=== PATIENT | male | born 1960 | race Caucasian/White ===

== ENCOUNTER 2021-01-18 00:21 | Inpatient (IN) | payer MEDICARE, MEDICAID, SELFPAY ==
[2021-01-18] VITALS (25 sets, daily range): BP systolic 116–181; BP diastolic 64–115; PULSE 56–90; RESP 18–24; TEMP 36.6–36.8; O2SAT 96–100; BMI 26.5
--- NOTE | 2021-01-18 00:21 | XRR_ITS ---
PROCEDURE INFORMATION: Exam: XR Chest Exam date and time: 01/18/2021 12:21 AM Age: 60 years old Clinical indication: Pain; Angina pectoris; Additional info: Chest pain TECHNIQUE: Imaging protocol: XR of the chest. Views: Frontal portable upright view of the chest. COMPARISON: No relevant prior studies available. FINDINGS: Tubes, catheters and devices: EKG leads are present overlying the chest. Lungs: Right mid lung zone calcified pulmonary parenchymal granuloma. The lungs are otherwise clear bilaterally. The pulmonary vasculature is normal. Pleural spaces: No pleural effusion. No pneumothorax. Heart/Mediastinum: The heart is normal in size and contour. Bones/joints: No acute chest wall abnormality identified. XR/XR chest 1V portable [id number] IMPRESSION: No acute cardiopulmonary abnormality identified.
[2021-01-18] MEDS: clopidogrel 300 mg Tablet 600 MG PO (00:32)
[2021-01-18] MEDS: heparin 5,000 unit/mL INJ 1 mL 4000 UNIT IVP (00:34)
--- NOTE | 2021-01-18 00:36 | PM.HP ---
Providers/Chief Complaint Admitting Physician: Cristino Charles MD/ Cardiology Chief Complaint: STEMI History of Present Illness Mariano Townsend is a 60 year old male with past medical history of peripheral artery disease, hypertension, tobacco abuse presented with severe chest pain. According to patient for the last 1 week he has been having on and off chest discomfort. It is substernal radiates to both arms and his arms feel numb. He had an episode last night which was quite severe. It was associated with diaphoresis and nausea. Tonight again he had prolonged chest pain episode for which she called EMS. EKG performed showed ST elevations in inferior leads with posterior wall involvement. Patient has specifically asked for not receiving any blood products secondary to his mandaen beliefs.He is not willing to give any blood for lab testing. Patient was emergently taken to the cardiac Supervisor Drying. Coronary angiogram showed thrombotic occlusion of mid RCA. He underwent successful PCI with CIARRA x1. He also has residual distal left main/left circumflex artery/LAD stenosis. Review of Systems General: Reports: 10 or more systems reviewed and unremarkable except in HPI and below Medications/Allergies Home Medications Medication Instructions Recorded Confirmed Last Taken Type acetaminophen [Tylenol Extra 500 - 1,000 mg PO PRN 01/18/21 01/18/21 Unknown History Strength] [id number]-[id number]-jspsomcf 1 ea INHALATION PRN 01/18/21 01/18/21 01/17/21 History [Trelegy Ellipta] ibuprofen 800 mg PO PRN 01/18/21 01/18/21 Unknown History naproxen sodium [Aleve] 220 mg PO PRN 01/18/21 01/18/21 Unknown History Allergies Allergy/AdvReac Type Severity Reaction Status Date / Time codeine Allergy ADR-Itching Verified 01/18/21 09:15 PFSH Acute PFSH: Medical History Arthritis Hypertension Peripheral artery disease Tobacco abuse Surgical History History of femoropopliteal bypass Family History Other Hypertension Social History Smoking and tobacco status: current every day smoker Vitals/I&O/Wt Last Vital Signs Temp 98.1 F 01/18/21 00:23 Pulse 90 01/18/21 00:23 Resp 18 01/18/21 00:23 BP 181/115 01/18/21 00:23 Pulse Ox 100 01/18/21 00:23 Weight last 48 hrs Weight 185 lb Physical Exam Narrative: EXAM NARRATIVE: GENERAL: Patient is alert, awake and oriented x3. [] NECK: No jugular vein distension. [] HEENT: No cyanosis. No icterus. No pallor. [] HEART: Regular S1 and S2. No murmur, rub or gallop. [] LUNGS: Clear to auscultate bilaterally. [] ABDOMEN: Soft, nontender and nondistended. Positive bowel sounds. No guarding, rebound or tenderness. [] CENTRAL NERVOUS SYSTEM: Grossly nonfocal. [] EXTREMITIES: Lower extremities with 1+ edema bilaterally. Pulses palpable in the lower extremities, both dorsalis pedis and posterior tibial. [] A&P Assessment and plan (1) ST elevation [place] (STEMI): Status: Acute (2) History of femoropopliteal bypass: Status: Acute (3) Arthritis: Status: Acute (4) Hypertension: Status: Acute (5) Peripheral artery disease: Status: Acute (6) Tobacco abuse: Status: Acute PatientPresented with ST elevation [place] and was emergently taken to the cardiac Supervisor Drying where he underwent intervention of his mid RCA with CIARRA x1. He has residual significant disease in the left main artery/LCx and LAD. We will ask for CT surgery evaluation. Because of by lateral severe PAD, percutaneous support device insertion will be challenging. CABG likely the superior option however as he does not receive any blood products secondary to mandaen believes, it may be challenging. We will let CT surgery make the determination of his candidacy for CABG after discussing with him. Aspirin and Plavix for at least 1 year. Order echocardiogram. High intensity statin therapy. Beta-prasanna and lisinopril. Admit to CSU Attestations Medical Necessity Statement*: Care expected to cross 2 midnights. Patient presented with acute ST elevation [place] of RCA. He has severe disease of left main/LCx and LAD. Coding Level of Care Code Acute Vehicle And Equipment Cleaner for Nicol Griggs Diagnoses ST elevation [place] (STEMI) I21.3 History of femoropopliteal bypass Z98.890 Arthritis M19.90 Hypertension I10 Peripheral artery disease I73.9 Tobacco abuse Z72.0
[2021-01-18] MEDS: sodium chloride 0.9% 1,000 ML 999 ML IV (00:37)
--- NOTE | 2021-01-18 00:37 | XACV_ITS ---
Ht: 178 cm Wt: 82 kg BSA: 2.02 m2 Gender: Male : 1960 Exam Priority: Routine Procedure(s): Procedure Description: Diagnostic procedure Procedure Description: PCI procedure Procedure Description: Drug Eluting Coronary Stent Procedure Description: PTCA Procedure Description: Coronary Angiography Diagnostic Cath Status: Emergency Diagnostic Findings * Distal left main artery has severe 60%, hazy lesion. * Circumflex has 80% mid stenosis. * Proximal RCA has moderate 30-40% stenosis. Mid Right Coronary Artery to Distal Right Coronary Artery: total thrombotic occlusion, ELIUD: 1 flow. * Left Main: obstructive 60% stenosis, ELIUD: 3 flow. It appears hazy. * Mid Left Anterior Descending: significant 80% stenosis, ELIUD: 3 flow. * Distal Left Anterior Descending: severe 90% stenosis, ELIUD: 3 flow. * First Obtuse Marginal Branch Segment: severe 90% stenosis, ELIUD: 3 flow. * Coronary angiography shows right dominance. PCI Status: Emergency PCI Indication: Immediate PCI for STEMI Interventional Findings * Procedure details: We engaged RCA with a JR4 guide catheter. IV heparin was administered to maintain an ACT above 250 seconds. A 0.014 run-through guidewire was used to cross the stenosis and was placed in PLV branch. 2.5 x 12 mm semicompliant balloon was used to predilate the stenosis in the mid RCA. This was followed by placement of 3.0 x 15 mm resolute [place] drug-eluting stent. At this time final angiogram was performed that showed excellent stent expansion, ELIUD-3 flow and no residual stenosis. Guidewire and guide catheter were removed. Patient left the Piping Drafter in a stable condition. * Mid Right Coronary Artery to Distal Right Coronary Artery: 99% stenosis treated with a Drug Eluting Stent. 0% residual stenosis, ELIUD: 3 flow. Conclusions 1. Total thrombotic occlusion of the mid to distal RCA which is culprit lesion for the STEMI s/p revascularization with CIARRA X 1. 2. Severe multivessel coronary artery disease involving distal Left main stenosis, severe mid LCx stenosis and severe mid LAD and distal LAD stenosis. 3. Mid Right Coronary Artery to Distal Right Coronary Artery was treated with a Drug Eluting Stent. Recommendations * Transfer to CSU. * Aspirin and Plavix for 1 year. * Patient has severe multivessel CAD. Culprit vessel for STEMI was RCA that was revascularized. We will consult CT surgery for CABG for revascularization of Left main/LAD/LCx. * Order echocardiogram. * Will await CT surgery plan for CABG. Interventional RX Recommendation: PCI w/o planned CABG Diagnostic RX Recommendation: PCI w/o planned CABG Anticoagulation: Heparin Pressures Phase:Rest AO : 135 / 72 ( 97 ) @ 8:35:58 PM 177 / 91 ( 125 ) @ 8:35:58 PM 149 / 89 ( 115 ) @ 8:35:58 PM 115 / 59 ( 82 ) @ 8:35:58 PM 142 / 78 ( 103 ) @ 8:35:58 PM 148 / 83 ( 110 ) @ 8:35:58 PM 187 / 86 ( 106 ) @ 8:35:58 PM 188 / 87 ( 107 ) @ 8:35:58 PM 144 / 80 ( 106 ) @ 8:35:58 PM Clinical Evaluation EBL: 5mL-10mL Procedural Details Pre-Procedure Time Out. Identified patient by full name and date of as verbalized by the patient/guarantor. Procedure started. Does the consent match the physician's order: Yes. Accurate & Complete Informed Consent: N/A Emergent. Inpatient/Outpatient History & Physical on Chart: N/A Emergent. If H&P is completed, is and addenduem needed: N/A Emergent; If yes, is the addendum complete: N/A Emergent. Visualize and Verify Site with Patient/Guarantor: N/A. Relevant Radiology Images available: N/A Emergent. Pre-op teaching completed and patient verbalized understanding. The risks, benefits, and alternatives of sedation and/or procedure were discussed by physician. The patient agrees to continue. [facility] Clinical Fraility Score: 4: Vulnerable. Piping Drafter Indications: ACS <= 24 hours. Chest Pain Symptom Assessment: Typical Angina Symptoms. Correct patient, site and procedure confirmed by cath team. Current diagnosis: STEMI. PERRLA. Strong, equal hand associate professor of surgery bilaterally. Lungs clear x 5 lobes. IV Site on Arrival: 18 gauge in the right anticubital. IV Site on Arrival: 18 gauge in the left anticubital. IV Fluids: 0.9% NaCl at KVO. 0 mL infused prior to cardiac cath rn. Oxygen started at 2liters/min via nasal canula. right groin was prepped with chloroprep then draped in the usual sterile fashion. right radial was prepped with chloroprep then draped in the usual sterile fashion. Physician notified. Baseline sample Acquired. HR: 73 BPM. Physician arrived. Physician scrubbed in. Immediate Pre-Procedure Time Out. Correct Patient: Yes; Correct Procedure: Yes; Correct Site: Yes; Correct Patient Position: Yes; Correct Supplies: Yes; Dried Flammable Prep: Yes; Blood Products Available: N/A Emergent;. Lidocaine 1% infiltrated to the right radial. Arterial access obtained. Current Diagnosis : STEMI. A 5 new zealander TIG catheter in over wire. Multiple views taken of right coronary artery. Catheter redirected to the LCA. Multiple views taken of left coronary artery. Catheter removed over the exchange wire. 6 new zealander JR 4 guide catheter was inserted over the wire. Runthrough guidewire was advanced through the guide catheter to lesion in the distal RCA. Inflation number : 1 A AB TREK 2.50X12 RX BALLOON was prepped and advanced across the Dist RCA , then inflated to 12 SEJAL for 0:17 seconds. Inflation number: 2 The AB TREK 2.50X12 RX BALLOON was reinflated across the Dist RCA, to 12 SEJAL for 0:17 seconds. Balloon out. Inflation Number : 3 A SALINAS Yuan EVAN 3.0X15 CIARRA -Lot Number# [id number] Exp: 10/05/2023 was prepped and advanced across the Dist RCA. The stent was deployed at 0 SEJAL for 0:21 seconds. Stent balloon out over wire. Results checked. Wire out. Results checked. Guide catheter out. 6 new zealander XB 3.5 guide catheter was inserted over the wire. Guide catheter out. 6 new zealander XB 3 guide catheter was inserted over the wire. PCI Indication : Immediate PCI for STEMI. Runthrough guidewire was advanced through the guide catheter to lesion in the mid Circ. Wire out. Guide catheter out. 6 new zealander JL 3.5 guide catheter was inserted over the wire. Multiple views taken of left coronary artery. Guide catheter out. A TR Band was successful obtaining hemostatsis at the Right Radial artery insertion site. TR band placed. Hemostasis obtained. Post Procedure: Pulses reassessed and unchanged. PERRLA. Strong, equal hand associate professor of surgery bilaterally. No VTE prophylaxis required. Total IV fluids: 100 mL. Contrast type used: Omnipaque 300 mgI/mL, 500 mL bottle. PCI Indication: STEMI. Post-op diagnosis: CAD. Complications: None. Estimated blood loss: 5mL-10mL. Procedure completed. Medication's Wasted: Lidocaine 1% = 18 mL. Medication's Wasted: Nitro = 49.8 mg. Medication's Wasted: Heparin = 1000 units. Patient transferred by wheelchair to 1st floor. Vital chart was stopped. Access Site Site: Right Radial artery Sheath Size: 6 Fr Hemostasis Method: TR Band Hemostasis Success: Successful Procedure Medications Start: 12:48 AM Stop: 12:48 AM Medication: Versed 1 mg and Fentanyl 25 mcg Amount: 1 Route: I.V. Start: 12:49 AM Stop: 12:49 AM Medication: Versed Amount: 1 mg Route: I.V. Start: 12:52 AM Stop: 12:52 AM Medication: Nitrogylcerin Amount: 200 mcg Route: I.A. Start: 12:54 AM Stop: 12:54 AM Medication: Heparin Amount: 5000 units Route: I.V. Start: 12:55 AM Stop: 12:55 AM Medication: Fentanyl Amount: 50 mcg Route: I.V. Start: 12:59 AM Stop: 12:59 AM Medication: Versed Amount: 1 mg Route: I.V. Start: 1:04 AM Stop: 1:04 AM Medication: Atropine Amount: 0.5 mg Route: I.V. Start: 1:09 AM Stop: 1:09 AM Medication: Versed Amount: 1 mg Route: I.V. Start: 1:09 AM Stop: 1:09 AM Medication: Fentanyl Amount: 25 mcg Route: I.V. Start: 1:12 AM Stop: 1:12 AM Medication: Aggrastat 12.5 mg/250 mL Amount: 41 ml Route: I.V. bolus Start: 1:12 AM Stop: 1:12 AM Medication: Aggrastat 12.5 mg/250 mL Amount: 14.8 ml/hr Route: I.V. drip Start: 1:26 AM Stop: 1:26 AM Medication: Versed Amount: 1 mg Route: I.V. I, the attending physician, have reviewed and verified all procedure medications. Yes, all medications given per verbal order History/Risk Factors Hypertension: No Dyslipidemia: No Peripheral Arterial Disease (PAD): No Myocardial Infarction (NH): No Obesity: No Renal Disease: No Prior Interventions PCI: No CABG: No Valve Surgery: No Report Signatures Finalized by Cristino Charles MD on 01/31/2021 03:47 PM
--- NOTE | 2021-01-18 00:42 | PC.NURSE ---
pt to shrimp pond laborer at 0041
--- NOTE | 2021-01-18 01:09 | ED_ITS ---
HPI - Chest Pain General: Chief Complaint: Chest Pain Stated Complaint: STEMI Time Seen by Provider: 01/18/21 00:21 Source: patient and EMS Mode of arrival: EMS Limitations: no limitations History of Present Illness: HPI narrative: 60-year-old male with history of vascular disease states that he was having chest pain roughly 2 hours ago. He states with a pressure type pain with dyspnea and diaphoresis he rated an 8 out of 10. He states that since resolved and he is taken 324 of aspirin. Denies any worsening improving factors. Denies any vomiting or diarrhea. Associated symptoms: Deny abdominal pain, dyspnea, fever(s), nausea or vomiting Review of Systems Const: Denies: fever(s), chills, body aches or change in appetite Eyes: Denies: blurry vision or eye discomfort ENMT: Denies: throat pain or dental pain Card: Reports: chest pain Resp: Denies: dyspnea GI: Denies: abdominal pain, nausea, vomiting or diarrhea : Denies: dysuria Musc: Denies: neck pain or back pain Skin/Breast: Denies: rash Neuro: Denies: headache(s) Psych: Denies: depression Stu/Lymph: Denies: easy bruising All/Imm: Denies: urticaria PFSH ED PFSH: Medical History Arthritis Hypertension Peripheral artery disease Tobacco abuse Surgical History History of femoropopliteal bypass Family History Other Hypertension Social History Smoking and tobacco status: current every day smoker Physical Exam Const: COMMON NORMALS: no acute distress, patient oriented x3 and healthy appearing HENMT: COMMON NORMALS: normocephalic and atraumatic HEAD & SCALP: normocephalic and atraumatic Eye: COMMON NORMALS: Equal, round and reactive pupils present and EOMs intact bilaterally PUPIL: Yes Equal, round and reactive pupils present Neck/C-Spine: COMMON NORMALS: full ROM and supple Chest: COMMONS NORMALS: normal inspection of the chest and normal palpation of entire chest wall Resp: COMMON NORMALS: normal respiratory effort, No retractions, No use of accessory muscles and clear to auscultation bilaterally AUSCULTATION: clear to auscultation bilaterally Cardio: COMMON NORMALS: regular rate, regular rhythm and No murmurs present (Cardio) RATE: regular rate RHYTHM: regular rhythm GI: COMMON NORMALS: Normal to inspection, nondistended, normoactive bowel sounds present, Soft to palpation, non-tender and no masses PALPATION: Yes Soft to palpation Extremity: COMMON NORMALS: normal to inspection and full ROM Neuro: COMMON NORMALS: patient oriented x3, moves all extremities and no focal motor deficits Psych: COMMON NORMALS: mental status grossly normal, Normal thought process present and cooperative THOUGHT PROCESS: Normal thought process present Skin: COMMON NORMALS: no rashes or lesions noted and no wounds GENERAL SKIN EXAM: no rashes or lesions noted Course Vital Signs: Vital signs: Vital Signs Temperature 98.1 F 01/18/21 00:23 Pulse Rate 90 01/18/21 00:23 Respiratory Rate 18 01/18/21 00:23 Blood Pressure 181/115 01/18/21 00:23 Pulse Oximetry 100 01/18/21 00:23 MDM - Chest Pain MDM Narrative: Medical decision making narrative: Patient presents here with an ST elevation PA. Patient has elevation in inferior leads. Patient was seen by infrastructure engineer in the ER and was taken to the Bicycle I Assembler. Discharge Plan Discharge Patient Disposition: Admitted As Inpatient Clinical Impression: ST elevation [place] (STEMI) Qualifiers: Involved coronary artery: unspecified coronary artery Qualified Code(s): I21.3 - ST elevation (STEMI) myocardial infarction of unspecified site Condition: Stable Coding Level of Care Code ED Automobile Service Advisor for Nicol Griggs
[2021-01-18 01:14] LABS: Troponin(5th) Baseline 58 ng/L (0-15)
--- NOTE | 2021-01-18 02:37 | PC.NURSE ---
Admit Note Patient admitted to CSU room 101 from slab stripper via wheelchair. Patient s/p STEMI with LHC and PCI. Dr Charles to provide services. Patient presents with TR band in place to right radial wrist with 12ml air in place. Pulses palpable, extremity warm to touch. Patient denies numbness or tingling to right upper extremity. Orders reviewed & will continue to monitor. Patient and/or guest relations representative oriented to environment, equipment, and informed of the following as found in the admission booklet: patient rights & responsibilities, visitor policy, hand and respiratory hygiene practice. Other education includes: site care for s/p right radial access. Plavix, Aspirin, possible beta prasanna and statin uses. Patient and/or guest relations representative verbalized understanding however will need reinforcement. Patient is legally blind. Provided instruction and demonstration of call light use placing ekg button for ease of location. Water placed at bedside within patient's reach. Patient denies other needs at this time. patient reports all pain in chest and back prior to admission has been resolved. No distress observed.
--- NOTE | 2021-01-18 06:03 | PC.NURSE ---
Aggrastat stopped at [address] Charles. TR band removed at this time. Began removing air from band at 0315 removing 2ml of air every 15-20min until band removed. No s/s of bleeding or hematoma formation observed. Covered with 2x2 and bio-occlusive dressing. Placed coban around wrist to help remind patient to avoid excessive use of right extremity. Instructed patient on site care and restrictions. Patient verbalized complete understanding. Patient denies pain or needs. No distress observed. Frequent monitoring continues.
--- NOTE | 2021-01-18 06:07 | PC.NURSE ---
Shift Note Frequent safety and comfort rounds continue. Orders and/or nursing care completed as indicated. Patient monitored for response to intervention and treatment(s). Education provided includes site care instructions for s/p LHC to include education regarding new medication: Plavix, Aspirin, Lipitor, Metoprolol and Lisinopril. Patient and/or off premise service representative verbalized complete understanding. Patient's right wrist dressing remains c,d,i with no s/s of bleeding or hematoma formation observed. Will continue to monitor.
--- NOTE | 2021-01-18 09:16 | PC.PHAR ---
pt states he takes care of his own medications-pt states he is suppose to be taking a blood thinner but hasnt taken it in 3 to 4 years-ext med history doesnt show when last filled-pt states he had an inhaler trelegy pt states he doesnt use ext med history shows last filled 05/06/2020 pt states he used 01/17/21 thinking it would help him but hadnt been using-pt states he takes no rx medications
[2021-01-18] MEDS: aspirin 81 mg EC Tablet PO (09:20)
[2021-01-18] MEDS: clopidogrel 75 mg Tablet PO (09:20)
[2021-01-18] MEDS: lisinopril 20 mg Tablet PO (09:20)
[2021-01-18] MEDS: metoprolol succinate ER (24 HR) 25 mg Tablet 12.5 MG PO (09:20)
--- NOTE | 2021-01-18 09:53 | PC.CHAP ---
Pastoral Care Encounter/Spiritual Assessment Type of Contact [] Declined steward racetrack visit [] Patient/Family/Request visit [] Outpatient visit [] Follow-up visit [] Physician referral [] Code/Alert [x] Routine visit [] Staff referral [] Actively dying [] Patient sleeping [] Family support [] [] Out of room [] Palliative care [] [] Receiving care in room [] Pre-surgical visit [] Trauma [] Long length of stay [] ICU visit [] Other: Relational/Emotional Strength [] Patient feels connected with others/family/visitors/staff [] Distress [] Loneliness/isolation [] Abandonment Spirituality of Patient [] Person of Jaleesa [] Attends Sikhism of their Jaleesa [] Believes in Prayer [] Reads Bible or Lutheran materials [] There are Spiritual issues to be addressed Cold Food Packer Interventions [x] Prayer [] Active listening [] Non-anxious presence [] Spiritual/emotional support [] Crisis/trauma care [] Spiritual counseling [] Bereavement support [] Provided bereavement packet [] Provided Bible/devotional materials [] Provided toy/stuffed animal, coloring book to patient or family member [] Provided Communion [] Anointing/[place] [] Salvation [x] Completed spiritual assessment [] Other: Impact on Illness or Injury [] Angry [] Fearful [] Anxious [] Often cries [] Exhaustion [] Unable to work [] Unable to attend catholic [] Unable to walk/stand [] Unable to read [] Unable to drive [] Unable to eat/drink [] Unable to sleep [] Unable to be with family [] Patient intubated [] Other: Summary Time spent with patient
[2021-01-18] MEDS: sodium chloride 0.9% 1,000 ML 100 ML IV (10:53)
--- NOTE | 2021-01-18 13:36 | USCV_ITS ---
Kristian Mariano Age: 60 Gender: M : 1960 Exam Date: 01/18/2021 13:54 Ordering Phys: Cristino Charles M.D ([email or web address]) Technologist: Calli Woods [place] [facility] [place]: POST STEMI BP: 141 / 69 HR: 66 Rhythm: Sinus Technical Quality: Adequate MEASUREMENTS (Male / Female) Normal Values 2D ECHO LV Diastolic Diameter PLAX 5.5 cm 4.2 - 5.9 / 3.9 - 5.3 cm LV Systolic Diameter PLAX 4.7 cm LV Chamber Size 3.8 cm IVS Diastolic Thickness 1.7 cm 0.6 - 1.0 / 0.6 - 0.9 cm IVS Systolic Thickness 1.5 cm LVPW Diastolic Thickness 1.1 cm 0.6 - 1.0 / 0.6 - 0.9 cm LVPW Systolic Thickness 1.7 cm RV Chamber Size 2.7 cm LVOT Diameter 2.1 cm LV Ejection Fraction 2D Teich 29.8 % LV Ejection Fraction MOD 2C 63.2 % LV Ejection Fraction 2C AL 66.0 % LA Diameter 3.6 cm LA Width 3.3 cm LA Height 3.4 cm RA Width 3.3 cm RA Height 3.5 cm Aorta at Sinotubular Diameter 3.1 cm M-MODE LV Diastolic Diameter MM 5.8 cm 4.2 - 5.9 / 3.9 - 5.3 cm LV Systolic Diameter MM 4.2 cm LV Ejection Fraction MM Teich 54.5 % IVS Diastolic Thickness MM 1.1 cm 0.6 - 1.0 / 0.6 - 0.9 cm IVS Systolic Thickness MM 1.4 cm LVPW Diastolic Thickness MM 1.4 cm 0.6 - 1.0 / 0.6 - 0.9 cm LVPW Systolic Thickness MM 1.9 cm Aortic Annulus Diameter 3.6 cm LA Ao Ratio MM 1.2 MV E Point Septal Separation 0.6 cm DOPPLER AV Peak Velocity 105.0 cm/s LVOT Peak Velocity 112.0 cm/s AV Area Cont Eq vti 3.5 cm squared AV Area Cont Eq pk 3.6 cm squared MV Area PHT 4.9 cm squared Mitral E to A Ratio 1.2 MV E' Velocity 53.0 cm/s Mitral E to MV E' Ratio 10.8 Mitral E to LV E' Lateral Ratio 9.1 Mitral E to LV E' Septal Ratio 13.1 TR Peak Velocity 130.1 cm/s TR Peak Gradient 6.8 mmHg TR Mean Velocity 102.5 cm/s TR Mean Gradient 4.4 mmHg TR Velocity Time Integral 28.2 cm TV Peak E Velocity 75.0 cm/s Right Atrial Pressure 3.0 mmHg Pulmonary Artery Systolic Pressu 9.8 mmHg PV Peak Velocity 66.0 cm/s RV Acceleration Time 0.1 s RV Ejection Time 0.3 s RV AcT/ET 0.4 FINDINGS Left Ventricle Left ventricle is normal in size. LV systolic function is normal with EF of 55-60%. Mild hypokinsis of the inferior wall. Normal diastolic filling pattern. Right Ventricle The right ventricle is normal in size and function. Right Atrium The right atrium is normal in size. Left Atrium The left atrium is normal in size Mitral Valve Structurally normal mitral valve without significant stenosis or prolapse. There is no mitral regurgitation. Aortic Valve Structurally normal aortic valve without significant sclerosis or stenosis. There is no aortic regurgitation. Tricuspid Valve Structurally normal tricuspid valve without significant stenosis or regurgitation. Insufficient TR jet to calculate RVSP Pulmonic Valve Structurally normal pulmonic valve without significant stenosis. There is no pulmonic regurgitation. Pericardium Normal pericardium without effusion. Aorta Normal ascending aorta dimension. CONCLUSIONS LV systolic function is normal with EF of 55-60%. Mild hypokinesis of the inferior wall. Diastolic function is normal No significant valvular heart disease No comparison studies are available Cristino Charles MD (Electronically Signed) Final Date: 18 January 2021 18:14 S
--- NOTE | 2021-01-18 18:24 | PC.NURSE ---
Shift Note Frequent safety and comfort rounds continue. Orders and/or nursing care completed as indicated. Patient monitored for response to intervention and treatment(s). Education provided includes new medications this stay future treatment options as discussed by Dr Charles. 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 Will continue to monitor.
[2021-01-18 18:36] LABS: Basophils # 0.1 10^3/uL (0.0-0.1); Basophils % 0.5 %; Eosinophils # 0.2 10^3/uL (0.0-0.8); Eosinophils % 1.5 %; Hematocrit 44.1 % (42.0-52.0); Hemoglobin 14.4 g/dL (11.7-16.6); Lymphocytes # 2.8 10^3/uL (0.8-4.8); Lymphocytes % 25.8 %; Mean Corpuscular HGB Conc 32.7 g/dL (30.0-36.0); Mean Corpuscular Hemoglobin 29.6 pg (28.0-34.0); Mean Corpuscular Volume 90.6 fL (80-94); Mean Platelet Volume 10.8 fL (7.4-10.4); Monocytes # 0.7 10^3/uL (0.2-0.9); Monocytes % 6.2 %; Neutrophils % 65.6 %; Nucleated Red Blood Cells % 0 %; Platelet Count 277 10^3/cmm (130-400); Red Blood Count 4.87 10^6/uL (4.1-5.3); Red Cell Distribution Width 12.8 % (12.1-15.1)
[2021-01-18] MEDS: bisacodyl 5 mg Tablet 10 MG PO (18:41)
--- NOTE | 2021-01-18 18:44 | PC.NURSE ---
placed call to Dr Charles with patient concerns of being constipated instructions received for Biscodyl 10 po x1 now
[2021-01-18 19:35] LABS: Anion Gap 18.3 (5-19); Blood Urea Nitrogen 10 mg/dL (8-23); Calcium 8.3 mg/dL (8.5-10.5); Carbon Dioxide 20 mmol/L (22-29); Chloride 104 mmol/L (98-107); Glomerular Filtration Rate 114.3 mL/min (90-130); Glucose 128 mg/dL (65-115); Osmolality Calculated 287 mOsm/kg (285-295); Potassium 4.3 mmol/L (3.5-5.1); Sodium 138 mmol/L (136-145)
--- NOTE | 2021-01-18 20:11 | PC.NURSE ---
Bedside report received from Marlen ROCHA. Patient is resting in bed. A & O. He has no C/O of pain or other needs at this time. Nurse to continue to monitor.
[2021-01-18] MEDS: atorvastatin 40 mg Tablet PO (20:20)
[2021-01-19 03:26] VITALS: BP 120/55; PULSE 68; RESP 20; TEMP 36.6; O2SAT 98
[2021-01-19 04:27] VITALS: PULSE 63
--- NOTE | 2021-01-19 06:01 | PC.NURSE ---
Shift Note Frequent safety and comfort rounds continue. Orders and/or nursing care completed as indicated. Patient monitored for response to intervention and treatment(s). Education provided includes future treatment options and the importance of medication compliance. Patient and/or equal opportunity representative verbalizes understanding and states he will take his medications . Will continue to monitor.
--- NOTE | 2021-01-19 07:31 | PM.DCS ---
Discharge Providers Date of Admission: 01/18/21 01:56 Date of Discharge: January 19, 2021 Attending Provider at Admission: Cristino Charles M.D Attending Provider at Discharge: Cristino Charles M.D Diagnoses at Discharge Discharge Diagnosis (1) Arthritis: Status: Acute (2) Hypertension: Status: Acute (3) Peripheral artery disease: Status: Acute (4) Tobacco abuse: Status: Acute (5) ST elevation MT (STEMI): Status: Acute Qualifiers: Involved coronary artery: unspecified coronary artery Qualified Code(s): I21.3 - ST elevation (STEMI) myocardial infarction of unspecified site Reason for Visit Reason for Visit: Brief History: 60 year old male with past medical history of peripheral artery disease, hypertension, tobacco abuse presented with severe chest pain. According to patient for the last 1 week he has been having on and off chest discomfort. It is substernal radiates to both arms and his arms feel numb. He had an episode last night which was quite severe. It was associated with diaphoresis and nausea. Tonight again he had prolonged chest pain episode for which he called EMS. EKG performed showed ST elevations in inferior leads with posterior wall involvement. biology laboratory assistant was activated and patient taken to supervisor cytogenetic laboratory emergently. Hospital Course Hospital Course 60 year old male with past medical history of peripheral artery disease, hypertension, tobacco abuse presented with severe chest pain. According to patient for the last 1 week he has been having on and off chest discomfort. It is substernal radiates to both arms and his arms feel numb. He had an episode last night which was quite severe. It was associated with diaphoresis and nausea. Tonight again he had prolonged chest pain episode for which he called EMS. EKG performed showed ST elevations in inferior leads with posterior wall involvement. biology laboratory assistant was activated and patient taken to supervisor cytogenetic laboratory emergently. Cardiac catherization performed showed occluded mid to distal RCA. This underwent successful revascularization with CIARRA x1. Angiogram of left system showed severe distal left main artery stenosis. This vessel looked hazy. Patient also had mid left circumflex and mid and distal LAD severe stenosis. CT surgery was consulted for potential CABG. Patient has severe peripheral artery disease and no option of femoral Impella available for high risk PCI. Dr. Peguero saw patient and plan is to see patient as outpatient and plan for outpatient CABG. echocardiogram showed normal LV systolic function. Mild hypokinesis of inferior wall is seen. The patient initially did not want to get any lab work-up done or have any blood transfusions secondary to his faith believes. However after CT surgery option was presented to him, he has agreed to receive blood as needed. Physical Exam Narrative: EXAM NARRATIVE: GENERAL: Patient is alert, awake and oriented x3. [] NECK: No jugular vein distension. [] HEENT: No cyanosis. No icterus. No pallor. [] HEART: Regular S1 and S2. No murmur, rub or gallop. [] LUNGS: Clear to auscultate bilaterally. [] ABDOMEN: Soft, nontender and nondistended. Positive bowel sounds. No guarding, rebound or tenderness. [] CENTRAL NERVOUS SYSTEM: Grossly nonfocal. [] EXTREMITIES: Lower extremities with 1+ edema bilaterally. Pulses palpable in the lower extremities, both dorsalis pedis and posterior tibial. [] Discharge Data Data Completed and Pending: Completed Studies During Hospitalization Category Date Time Status XR chest 1V jame ble [id number] Urgent Exams 01/18/21 00:21 Completed CV. echo complete * [id number] Urgent Ultrasound 01/18/21 13:36 Completed Pending at discharge Category Date Time Status SURGICAL SUPPLIES STERILIZER request for service Stat Exams 01/18/21 00:37 Taken Labs from last 24 hours 01/18/21 01/18/21 17:55 17:55 WBC 11.0 H RBC 4.87 Hgb 14.4 Hct 44.1 MCV 90.6 MCH 29.6 MCHC 32.7 RDW 12.8 Plt Count 277 MPV 10.8 H Neut % (Auto) 65.6 Lymph % (Auto) 25.8 [place] % (Auto) 6.2 Eos % (Auto) 1.5 Baso % (Auto) 0.5 Neut # (Auto) 7.20 Lymph # (Auto) 2.8 [place] # (Auto) 0.7 Eos # (Auto) 0.2 Baso # (Auto) 0.1 Nucleated RBC % (a uto) 0 Nucleated RBCs # 0.0 Sodium 138 Potassium 4.3 Chloride 104 Carbon Dioxide 20 L Anion Gap 18.3 BUN 10 Creatinine 0.7 GFR Calculation 114.3 Glucose 128 H Calculated Osmolal ity 287 Calcium 8.3 L Vitals: Last Vital Signs Temp 98 F 01/19/21 03:26 Pulse 63 01/19/21 04:27 Resp 20 H 08/10/21 03:26 BP 120/55 01/19/21 03:26 Pulse Ox 98 01/19/21 03:26 Discharge Plan Discharge Patient Disposition: Home Condition: Stable Prescriptions: New aspirin 81 mg Tablet,Delayed Release (Dr/Ec) 81 mg PO DAILY Qty: 90 RF: 3 atorvastatin 40 mg Tablet 40 mg PO BEDTIME Qty: 90 RF: 3 lisinopril 20 mg Tablet 20 mg PO DAILY Qty: 90 RF: 3 clopidogrel 75 mg Tablet 75 mg PO DAILY Qty: 90 RF: 3 nitroglycerin 0.4 mg Tablet, Sublingual 0.4 mg sublingual Q5M PRN (Reason: Chest Pain) Qty: 60 RF: 0 metoprolol succinate 25 mg Tablet Extended Release 24 Hr 12.5 mg PO DAILY Qty: 90 RF: 3 Continued Tylenol Extra Strength 500 mg Tablet 500 - 1,000 mg PO PRN RF: 0 Trelegy Ellipta 100-62.5-25 mcg blister with device 1 ea INHALATION PRN RF: 0 Discontinued naproxen sodium [Aleve] 220 mg Tablet 220 mg PO PRN RF: 0 ibuprofen 200 mg Tablet 800 mg PO PRN RF: 0 Discharge Orders: Discharge Order (Routine); Ordered 01/19/21 Ordered By: Cristino Charles Referrals: Cristino Charles M.D [Physician] - 1 month (Please follow-up with Dr. Charles on . 13 at 3:30P.M. If have any questions or need to reschedule. Please call ) Epifanio Peguero MD [Physician] - 2 weeks (Please follow-up with Dr. Peguero on at 9:15A.M. If you have any questions or need to reschedule. Please call ) Irais Kramer FNP [Nurse Practitioner] - 7-10 days (Please follow-up with Irais Kramer on at 1:45P.M. If you have any questions or need to reschedule. Please call ) Discharge Diet: Cardiac Discharge Activity: Increase activity as tolerated Patient Instructions: Metoprolol (By mouth), Nitroglycerin (By mouth), Lisinopril (By mouth), Atorvastatin (By mouth), Clopidogrel (By mouth), Coronary Angioplasty (DC), Peripheral Artery Disease (DC), Hypertension (GEN), Opioid Safety, Post Angiogram Home Care Instructions Activity Restrictions/Additional Instructions: Please do not lift more than 5 pounds of weight for the next 5 days Discharge Attestations Time Spent in Discharge Care*: greater than 30 min Quality Metrics Clinical Quality Measures During this hospital stay, did patient experience: AMI Clinical Trial Participant: No Contraindication to aspirin (AMI): Aspirin given Contraindication to statin: Statin prescribed Coding Level of Care Code Acute g FW DC note Diagnoses Arthritis M19.90 Hypertension I10 Peripheral artery disease I73.[address] elevation MT (STEMI) I21.3 Involved coronary artery: unspecified coronary artery
[2021-01-19 08:00] VITALS: BP 138/79; PULSE 63; RESP 12; TEMP 37.1; O2SAT 98
[2021-01-19] MEDS: metoprolol succinate ER (24 HR) 25 mg Tablet 12.5 MG PO (09:10)
[2021-01-19] MEDS: clopidogrel 75 mg Tablet PO (09:11)
[2021-01-19] MEDS: aspirin 81 mg EC Tablet PO (09:11)
[2021-01-19 12:00] VITALS: BP 138/79; PULSE 82; RESP 12; TEMP 37.1
--- NOTE | 2021-01-19 13:31 | PC.NURSE ---
Discharge Note Patient discharged to home via w/c accompanied by . 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 Mobile pharmacy medications and/or prescriptions provided. Belongings/home medications returned.
[2021-01-19 13:32] VITALS: BP 138/79; PULSE 82; RESP 12; TEMP 37.1
--- NOTE | 2021-01-20 07:14 | PC.RESP ---
SMOKING CESSATION INFORMATION SENT TO PATIENT.
--- NOTE | 2021-01-25 09:16 | PC.SOCIAL ---
multiple calls made for discharge follow up call without success.
== END 2021-01-19 13:33 | disposition home or self-care (01) | DRG 247 ==
LOC: ER 01:09 → CCL 01:14 → CSU 01:57
PROVIDERS: Admitting Provider Internal Medicine; Emergency Provider Emergency Medicine; Visit Provider Internal Medicine
PROC: 027034Z Dilation of Coronary Artery, One Artery with Drug-eluting Intraluminal Device, Percutaneous Approach (ICD-10-PCS; principal; 2021-01-18)
PROC: 027034Z Dilation of Coronary Artery, One Artery with Drug-eluting Intraluminal Device, Percutaneous Approach (ICD-10-PCS; 2021-01-18)
DX: I21.3 ST elevation (STEMI) myocardial infarction of unspecified site (principal); F17.210 Nicotine dependence, cigarettes, uncomplicated; I73.9 Peripheral vascular disease, unspecified; M19.90 Unspecified osteoarthritis, unspecified site; I10 Essential (primary) hypertension; Z79.82 Long term (current) use of aspirin; Z82.49 Family history of ischemic heart disease and other diseases of the circulatory system; Z98.890 Other specified postprocedural states; Z88.5 Allergy status to narcotic agent
CPT/HCPCS: 71045; 80048; 84484; 85025; 93306; 93454; 96374; 99291; C1725; C1769; C1874; C1887; C1894; C9600; J0461; J1644; J2250; J3010; J3246; J3490; J7030; Q9967

== ENCOUNTER 2021-03-10 08:46 | Outpatient (CLI) | payer MEDICARE, MEDICAID, SELFPAY ==
--- NOTE | 2021-03-10 11:45 | USCV_ITS ---
Mariano Townsend Age: 60 Gender: M : 1960 Exam Date: 03/10/2021 09:56 Ordering Phys: Epifanio Peguero MD (Andy) ([email or web address] Technologist: Jeancarlos Cervantes Exam Location: [facility] [place] Indication: PRE OP RIGHT LEFT LOWER EXTREMITY Diameter Diameter (cm) (cm) 0.29 High Thigh 0.38 0.33 Mid Thigh 0.37 0.26 Above Knee 0.31 0.24 Below Knee 0.17 0.24 Mid Calf 0.19 0.23 Ankle 0.17 RIGHT LEFT Findings The bilateral lower extremity veins were found to be tender and easily compressible Conclusions 1. Patent veins bilaterally with no evidence of thrombosis. 2. Relatively small caliber veins in the left below-knee level Dr Sofia Washington MD FACC (Electronically Signed) Final Date: 10 March 2021 22:19 S
[2021-03-15 05:26] LABS: Glucose Point of Care 102 mg/dL (70-110)
== END 2021-03-10 08:47 | disposition home or self-care (01) ==
LOC: US 08:51
PROVIDERS: Visit Provider Thoracic Surgery (Cardiothoracic Vascular Surgery)
DX: I25.10 Atherosclerotic heart disease of native coronary artery without angina pectoris (principal); Z20.822 Contact with and (suspected) exposure to COVID-19
CPT/HCPCS: 87635; 93970

== ENCOUNTER 2021-03-15 13:50 | Inpatient (IN) | payer MEDICARE, MEDICAID, SELFPAY ==
[2021-03-10 09:24] VITALS: BMI 24.5
[2021-03-10 09:33] LABS: Add Urine Microscopic? NO; Charge for UA Resulting for Rev
[2021-03-10 09:40] LABS: Bilirubin Urine Neg (Negative); Blood Urine Neg (Negative); Glucose Urine UA Norm (Normal); Ketones Urine Negative (Negative); Leukocyte Esterase Urine Negative (Negative); Nitrate Urine Negative (Negative); Protein Urine Neg (Negative); Specific Gravity, Urine 1.015 (1.005-1.030); Urine Appearance Clear (CLEAR); Urine Color Yellow (Yellow); Urobilinogen Urine Norm (Negative); pH Urine 5 (5-7)
--- NOTE | 2021-03-10 09:42 | P.ANESASSM_ITS ---
Pre-Anesthetic Assessment Pre-Anesthetic Assessment: Height/Weight: Height 1.78 m Weight 77.564 kg Preop Diagnosis: Coronary artery disease/left main stenosis Proposed Procedure: Operation Date: 03/15/21 07:00 Proposed Procedures p CABG(Not Applicable) - Epifanio Peguero MD Familial anesthetic complications: none Social: Social History: Alcohol (occassional, but drinks heavily when drinking) and Tobacco Exam: Pre-Anes Outpt Exam: alert, oriented x 3, clear to auscultation bilaterally and regular rate & rhythm Airway: Cervical ROM: WNL MP: 3 Dentition: Other (no teeth) Pulmonary: Pulmonary: Cough (smoker's cough) CV/HEM: CV/HEM: CAD, HTN and PVD (poor circulation in legs s/p bypass) Comments: Echo CONCLUSIONS LV systolic function is normal with EF of 55-60%. Mild hypokinesis of the inferior wall. Diastolic function is normal No significant valvular heart disease No comparison studies are available lab associate Conclusions 1. Total thrombotic occlusion of the mid to distal RCA which is culprit lesion for the STEMI s/p revascularization with CIARRA X 1. 2. Severe multivessel coronary artery disease involving distal Left main stenosis, severe mid LCx stenosis and severe mid LAD and distal LAD stenosis. 3. Mid Right Coronary Artery to Distal Right Coronary Artery was treated with a Drug Eluting Stent. Recommendations * Transfer to [facility]. * Aspirin and Plavix for 1 year. * Patient has severe multivessel CAD. Culprit vessel for STEMI was RCA that was revascularized. We will consult CT surgery for CABG for revascularization of Left main/LAD/LCx. * Order echocardiogram. * Will await CT surgery plan for CABG. Musc/skel: Musc/skel: OA/DJD Anesthetic Plan: ASA status: 4 Anesthesia: General Risk of > 500 ml blood loss (7ml/kg in children): Yes, adequate IV access and fluids planned PFSH Anesthesia PFSH: Medical History Arthritis Atherosclerosis of coronary artery Coronary artery disease involving left main coronary artery Hypertension Peripheral artery disease ST elevation [place] (STEMI) Tobacco abuse Surgical History History of femoropopliteal bypass Family History Other Hypertension Social History Smoking and tobacco status: current every day smoker cigarettes Packs smoked per day: 1 Years cigarettes smoked: 50 Alcohol intake: current Alcohol intake frequency: 3 or more drinks per day Alcohol type: beer Household members: spouse Housing: House Marital status: Number of children: 7 service: No Current occupational status: disabled Pets and animals: Yes Pets & animals: dog(s) Data Anesthesia Other Labs: Laboratory Results - last 48 hr 03/10/21 09:19 Urine Color Yellow Urine Appearance Clear Urine pH 5 Ur Specific [place] 1.015 Urine Protein Neg Urine Glucose (UA) Norm Urine Ketones Negative Urine Blood Neg Urine Nitrate Negative Urine Bilirubin Neg Urine Urobilinogen Norm Ur Leukocyte Esterase Negative Cardiac Studies: Echocardiogram 01/18/21
[2021-03-10 10:07] LABS: Basophils # 0.1 10^3/uL (0.0-0.1); Basophils % 0.8 %; Eosinophils # 0.3 10^3/uL (0.0-0.8); Eosinophils % 2.5 %; Hematocrit 45.8 % (42.0-52.0); Hemoglobin 15.1 g/dL (11.7-16.6); Lymphocytes # 3.3 10^3/uL (0.8-4.8); Lymphocytes % 29.8 %; Mean Corpuscular Hemoglobin 29.8 pg (28.0-34.0); Mean Corpuscular Volume 90.5 fl (80-94); Mean Platelet Volume 10.3 fL (7.4-10.4); Monocytes # 0.6 10^3/uL (0.2-0.9); Monocytes % 5.6 %; Neutrophils # 6.78 10^3/uL (1.8-7.7); Neutrophils % 60.8 %; Nucleated Red Blood Cells % 0 %; Platelet Count 272 10^3/cmm (130-400); Red Blood Count 5.06 10^6/uL (4.1-5.3); Red Cell Distribution Width 13.8 % (12.1-15.1); White Blood Count 11.2 10^3/uL (4.0-10.0)
[2021-03-10 10:33] LABS: INR 0.94 (0.8-1.2)
[2021-03-10 10:34] LABS: Partial Thromboplastin Time 26.8 SECONDS (23.9-36.7)
[2021-03-10 10:38] LABS: Alanine Aminotransferase 31 U/L (0-41); Albumin Level 4.4 g/dL (3.5-5.2); Alkaline Phosphatase 105 IU/L (40-130); Aspartate Amino Transferase 17 U/L (0-40); Blood Urea Nitrogen 23 mg/dL (8-23); Calcium 9.7 mg/dL (8.5-10.5); Carbon Dioxide 23 mmol/L (22-29); Chloride 101 mmol/L (98-107); Free T4 Free Thyroxine 1.24 ng/dL (0.82-1.77); Globulin 3.8 g/dL (1.3-4.6); Glomerular Filtration Rate 75.7 mL/min (90-130); Glucose 94 mg/dL (65-115); Osmolality Calculated 283 mOsm/kg (285-295); Sodium 135 mmol/L (136-145); Thyroid Stimulating Hormone 1.88 uIU/mL (0.27-4.20); Total Bilirubin 0.6 mg/dL (0.15-1.2); Total Protein 8.2 g/dL (6.6-8.7)
[2021-03-10 10:41] LABS: Anion Gap 15.3 (5-19); Potassium 4.3 mmol/L (3.5-5.1)
[2021-03-15] VITALS (58 sets, daily range): BP systolic 98–173; BP diastolic 50–100; PULSE 62–93; RESP 10–19; TEMP 36–37.2; O2SAT 10–100
[2021-03-15] MEDS: lactated ringers 1,000 ML 100 ML IV (05:35)
--- NOTE | 2021-03-15 05:48 | P.ANESUD_ITS ---
Pre-Anesthetic Update Pre-Anesthetic Assessment: Date of Surgery/Procedure: 03/15/21 Preop Karina gnosis: Coronary artery disease/left main stenosis Proposed Procedure: Operation Date: 03/15/21 07:00 Proposed Procedures p CABG(Not Applicable) - Epifanio Peguero MD Any changes to Pre-Anesthetic Assessment?: No Last Intake: Intake Last Liquid Date 03/14/21 Last Liquid Time 22:00 Last Solid Date 03/14/21 Last Solid Time 19:00 Labs Last 48hrs: Laboratory Results - last 48 hr 03/10/21 09:29 Blood Type O Positive Rho(D) Type Positive Antibody Screen Negative Crossmatch See Detail Vitals: Temperature 97.2 F L 03/15/21 05:12 Temperature Source Temporal Artery S can 03/15/21 05:12 Pulse Rate 62 03/15/21 05:45 Respiratory Rate 16 03/15/21 05:45 Blood Pressure 129/69 03/15/21 05:45 Blood Pressure Nury n 89 03/15/21 05:45 Pulse Oximetry 98 03/15/21 05:45 Oxygen Delivery Me thod 03/15/21 05:45 Exam: Pre-Anes Outpt Exam: alert, oriented x 3, clear to auscultation bilaterally (distant) and regular rate & rhythm Additional Exam Findings (including area of procedure): Took B-prasanna and lisinopril this morning. Cardiac Studies: Echocardiogram 01/18/21
--- NOTE | 2021-03-15 06:06 | PM.HP ---
Providers/Chief Complaint Admitting Physician: Dr. Peguero History of Present Illness Mariano Townsend is a 60 year old male whom I saw on February [address] Charles. He originally presented on January 18 with chest pain and was determined to have an inferior STEMI. He underwent left heart catheterization and successful PTCA rescue of an occlusion of the RCA. During that catheterization was also determined to have haziness of the left main coronary artery with a 60% stenosis along with 80% stenosis of the proximal circumflex, 80% mid LAD stenosis, and 90% distal LAD stenosis with 90% first OMB lesion as well. Post intervention he has done well and was seen in my clinic on February 04. Due to his left main lesion along with proximal and mid disease of the LAD and circumflex vessels, surgical revascularization has been recommended by Dr. Charles. Mr. Townsend has done well since discharge. 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 He has undergone outpatient preoperative evaluation. Saphenous vein mapping revealed that the right greater saphenous vein is most consistent vessel throughout its course. Review of Systems Const: Denies: fever(s), chills, change in appetite, change in weight, fatigue or night sweats Eyes: Denies: change in vision or blurry vision ENMT: Denies: odynophagia or hoarseness Card: Denies: chest pain (None since his PTCA.), palpitations, irregular heart rhythm or edema Resp: Denies: dyspnea or productive cough GI: Denies: abdominal pain, nausea, vomiting, dysphagia, heartburn or change in bowel habits : Denies: difficulty urinating, dysuria, urinary frequency, urinary urgency or urinary hesitancy Musc: Denies: extremity pain or extremity swelling Skin/Breast: Denies: rash Neuro: Denies: headache(s), numbness in extremities, weakness in extremities or sensory changes Psych: Denies: anxiety, depression or change in appetite Endo: Denies: polyuria, polydipsia or cold intolerance Stu/Lymph: Denies: easy bruising, easy bleeding, petechiae or enlarged lymph nodes Medications/Allergies Home Medications Medication Instructions Recorded Confirmed Last Taken Type aspirin 81 mg PO DAILY #90 tab 01/19/21 03/15/21 03/14/21 Rx atorvastatin 40 mg PO BEDTIME #90 tab 01/19/21 03/15/21 03/14/21 Rx clopidogrel 75 mg PO DAILY #90 tab 01/19/21 03/15/21 03/13/21 Rx lisinopril 20 mg PO DAILY #90 tab 01/19/21 03/15/21 03/15/21 Rx nitroglycerin 0.4 mg SUBLINGUAL Q5M PRN #60 tab 01/19/21 03/10/21 Unknown Rx metoprolol succinate 12.5 mg PO BEDTIME 03/10/21 03/15/21 03/15/21 03:00 History Allergies Allergy/AdvReac Type Severity Reaction Status Date / Time codeine Allergy ADR-Itching Verified 03/04/21 15:00 PFSH Acute PFSH: Medical History Arthritis Atherosclerosis of coronary artery Coronary artery disease involving left main coronary artery Hypertension Peripheral artery disease ST elevation [place] (STEMI) Tobacco abuse Surgical History History of femoropopliteal bypass Family History Other Hypertension Social History Smoking and tobacco status: current every day smoker cigarettes Packs smoked per day: 1 Years cigarettes smoked: 50 Alcohol intake: current Alcohol intake frequency: 3 or more drinks per day Alcohol type: beer Household members: spouse Housing: House Marital status: Number of children: 7 service: No Current occupational status: disabled Pets and animals: Yes Pets & animals: dog(s) Vitals/I&O/Wt Last Vital Signs Temp 97.2 F L 03/15/21 05:12 Pulse 62 03/15/21 05:45 Resp 16 03/15/21 05:45 BP 129/69 03/15/21 05:45 Pulse Ox 98 03/15/21 05:45 Physical Exam Const: COMMON NORMALS: patient oriented x3 and alert ORIENTATION/CONSCIOUSNESS: Yes oriented to person, Yes oriented to place and Yes oriented to time HENMT: COMMON NORMALS: normocephalic HEAD & SCALP: normocephalic Neck/C-Spine: COMMON NORMALS: full ROM, supple, no JVD and No carotid bruits GENERAL: Yes trachea midline CERVICAL SPINE: Yes cervical ROM normal Chest: COMMONS NORMALS: normal inspection of the chest and normal palpation of entire chest wall Resp: COMMON NORMALS: normal respiratory effort, No use of accessory muscles, clear to auscultation bilaterally and percussion normal EFFORT & INSPECTION: Yes able to speak in complete sentences and Yes symmetric chest movement AUSCULTATION: clear to auscultation bilaterally PERCUSSION: percussion normal Cardio: COMMON NORMALS: no JVD, regular rate, regular rhythm, S1 normal heart sound present, S2 normal heart sound present, No gallops present (Cardio), No murmurs present (Cardio), No rub (Cardio) and Peripheral pulses 2+ throughout JUGULAR VENOUS DISTENTION: no JVD RATE: regular rate RHYTHM: regular rhythm HEART SOUNDS: S1 normal heart sound present and S2 normal heart sound present PERIPHERAL PULSES: radial pulses present positive bilateral 2+ and dorsalis pedis present Extremity: COMMON NORMALS: no clubbing, cyanosis or edema Neuro: COMMON NORMALS: patient oriented x3, no focal motor deficits and no sensory deficits noted SENSORIUM/ORIENTATION: Yes alert, Yes oriented to person, Yes oriented to place and Yes oriented to time GAIT: Yes Normal gait present OTHER: Blind Data : 03/10/21 09:29 03/10/21 09:29 A&P Assessment and plan (1) Coronary artery disease involving left main coronary artery: Pleasant 60-year-old gentleman status post inferior STEMI with PTCA rescue and occluded RCA. He has left main as well as proximal circumflex and LAD disease as well as distal LAD disease. He is undergoing careful preoperative evaluation in preparation for planned attempted surgical vascularization. Rationale was carefully discussed with Mr. Townsend and his and mother during a prior clinic visit of February 04. Details and risks of CABG were carefully and frankly reviewed. Risks discussed include the possibility of , stroke, heart attack, major bleeding possibly requiring the need to reopen chest, infection, pneumonia, organ failure, failure to benefit, early closure of the bypass grafts, inability to complete the procedure, prolonged hospitalization, blood clots to lungs or other organs, need for further interventions, continued pain after surgery, need for future surgery, and possible long-term bleeding risk secondary to medication requirements. All questions were answered. Mr. Townsend stated understanding. He and family do wish for us to proceed Status: Acute Attestations Medical Necessity Statement*: Status post STEMI with PTCA risk of the RCA. Left main stenosis with proximal circumflex and LAD disease. Time Spent in Patient Care: Greater than 35 minutes Coding Level of Care Code Acute Slope Runner for Nicol Griggs Diagnoses Coronary artery disease involving left main coronary artery I25.10
[2021-03-15] MEDS: cefUROXime 1,500 MG in sodium chloride 0.9% (plus) 50 ML 100 MG IV (06:55)
[2021-03-15] MEDS: sodium bicarbonate 1 mEq/mL SDV 50mL 0.7 MEQ IRRIGATION (07:45)
[2021-03-15] MEDS: vancomycin 1,000 MG SDV 2000 MG IRRIGATION (07:45)
[2021-03-15] MEDS: heparin, porcine 1,000 unit/mL INJ 10 mL 1750 UNIT IRRIGATION (07:45)
--- NOTE | 2021-03-15 08:02 | ANES.PROC ---
Anesthesia Procedures Procedure/Date: 03/15/21 Arterial Line: Time Out Performed: Yes Consent: requested by attending/covering physician, from patient, risks and benefits reviewed and patient agrees to proceed Size (Gauge): 20 Technique Used: direct puncture technique Post-Procedure: dry sterile dressing placed Patient Tolerated Procedure: well Complications: none Site: right and radial Central Venous Insert: Central Venous Line: Double stick, RIJ, 9fr PAC introducer and 7fr 3-lumen Time Out Performed: Yes Consent: requested by attending/covering physician, from patient, risks and benefits reviewed and patient agrees to proceed Central Line: New Anesthesia monitors: pulse oximetry, EKG, BP cuff and oxygen Vein cannulated: right internal jugular Post procedure: Obtain Chest X-Ray Additional Comments: Seldinger technique, sterile prep, drape, gown and glove, seeker needle, guide wire passed easily. Sutured in place and sterile dressing.
--- NOTE | 2021-03-15 08:32 | XR_ITS ---
WS: [id number] Portable AP supine chest, 03/15/2021 Clinical Data: POST OPEN HEART. IN OR 1. WILL CALL WHEN READY Comparison: Portable chest, 01/18/2021. Findings: The patient is had cardiac surgery. The endotracheal tube is above the ari. The nasogast hiram tube ends in the fundus of stomach. A [place]-Velasquez catheter and left chest tube are in good position . The pulmonary vascularity is minimally prominent. No pneumothorax is seen. The heart size is normal . Midline sternotomy sutures are seen. Monitor leads are on the chest wall. XR/XR chest 1V portable [id number] Impression: 1. Satisfactory position of multiple postoperative tubes. 2. Mild pulmonary vascular congestion.
--- NOTE | 2021-03-15 13:39 | PC.NURSE ---
OR to ICU admission note PT transferred to ICU via bed with OR team and Dr. Peguero at bedside. Et tube, tolliver, wound vac, and chest tubes noted. Alicja to the right wrist and cordis/swan and triple lumen central line noted to the right IJ. OG clamped. pacer noted at bedside and cpr patched to chest wall.
--- NOTE | 2021-03-15 14:20 | ECG_ITS ---
[facility] Test Date: 2021-03-15 Pat Name: Mariano Townsend Department: Room: ICU11 Gender: Male Transmitter Chief: : 1960 Requested By: Epifanio Peguero Order Number: [id number] Reading MD: DESHAUN DOBSON Measurements Intervals [place] Rate: 78 P: 56 NV: 203 QRS: 40 QRSD: 89 T: -28 QT: 380 QTc: 435 Interpretive Statements SINUS RHYTHM ST ELEVATION, PROBABLY EARLY REPOLARIZATION [ST ELEVATION WITH NORMALLY INFLECTED T-WAVE] ABNORMAL QRS-T ANGLE [QRS-T AXIS DIFFERENCE > 60] No previous ECG available for comparison Electronically Signed On 03-15-2021 20:22:48 CDT by DESHAUN DOBSON [id number]
[2021-03-15] MEDS: fentaNYL 50 mcg/mL INJ 2mL IVP ×2 (14:34→23:21)
--- NOTE | 2021-03-15 14:49 | P.OP_ITS ---
Operative Report Date of procedure: March 15, 2021 Pre-op Diagnosis: Coronary artery disease/left main stenosis Post-op diagnosis: same Procedure Done: 1. Coronary artery bypass grafting x3 (one artery and two veins), utilizing in situ left internal mammary artery to the left anterior descending artery, reverse saphenous vein graft aorta to the diagonal artery, and reverse saphenous vein graft from the aorta to the obtuse marginal branch of the circumflex artery. #2. Endoscopic saphenous vein harvesting of the right greater saphenous vein from the right thigh and leg. Implants: Vein markers x2 Pathology: none sent Surgeon: Epifanio Peguero Anesthesia: General Urine output (mL): 550 Complications: None Condition: stable Disposition: ICU Brief History: Mr. Townsend is a 60-year-old gentleman who originally presented back in January with a inferior STEMI. He underwent successful PTCA rescue by Dr. Townsend of an occluded RCA. He was also found at that time to have a distal left main stenosis as well as high-grade proximal lesions of the LAD and circumflex vessels as well as an apical lesion of the LAD. Due to his left main lesion, he was referred to our service for surgery revascularization. He underwent careful outpatient review. Details of risk of procedure were carefully and frankly discussed with him and his . He is subsequently electively admitted for planned CABG. Procedure: Details and risks of the surgery were carefully and frankly explained to the patient and the family. Particular risks of this surgery carefully reviewed with them included the possibility of , stroke, heart attack, major bleeding, infection, pneumonia, pain, organ failure, failure to benefit, early closure of the bypass grafts, prolonged hospital stay and subsequent need for further procedures. Increased risks for complications secondary to left main disease were carefully reviewed. Patient and family understand these increased risks. All questions were answered and appropriate consents were reviewed and signed. Preoperative education for the patient and the family included both writ ten and video materials. The patient and the family wished to proceed with plans for attempted surgical revascularization for severe coronary artery bypass. PROCEDURE: Preoperative evaluation was obtained from our Anesthesia colleagues and adequate IVs were confirmed. The patient was then taken to the Operating Room Suite where general anesthesia was induced. Appropriate invasive monitoring lines were placed, including large bore peripheral IVs, central line, [place]-Velasquez catheter, Cardenas catheter and associated monitoring leads. After careful positioning on the Operating Room table, the patient was subsequently sterilely prepped and draped. The patient then received low-dose Heparin prior to vein harvest. Saphenous vein was harvested by endoscopic technique from the right thigh and leg. Branches were secured with ligature and clips and the vein was extracted from the tunnel without tension. It was then flushed with a Heparin and albumin solution and prepared for grafting. Vein harvest sites were irrigated, platelet poor plasma infused into the tunnel and port sites closed with 3-0 and 4-0 Vicryl Plus suture. Simultaneously with vein harvesting, a median sternotomy was created utilizing a #10 scalpel blade with hemostasis controlled with cautery. After reaching the sternal table, the sternum was divided with a reciprocating saw. Bleeding was controlled with cautery and judicious use of bone wax. Following this, the left chest wall was elevated with a Rultract retractor. The left internal mammary artery was dissected free with branches being secured with clips and cautery. T he distal end was left intact. After harvesting of the mammary artery, a left pleural chest tube was then placed. The left chest wall was then lowered and moistened antibiotic-soaked laparotomy pads were placed in the wound, followed by an Ankeney retractor. The sternum was then and the pericardium opened and secured with stay sutures. After inspection, 2-0 pledgeted Ethibond sutures were placed at cannulation sites, at which time the patient was fully heparinized. Following this, the left internal mammary artery was taken down from its distal attachment, flushed with Papaverine solution, prepared for grafting and brisk flow confirmed. A soft bulldog was applied distally. Next, the heart was cannulated with a 22-Maori aortic cannula, two-stage venous cannula and aortic root vent. The patient was subsequently placed on cardiopulmonary bypass and cooled systemically to 34 degrees. Aortic cross-clamp was then carefully placed and 4 degree Celsius cold blood cardioplegia was adm inistered through the aortic root in antegrade fashion. Prompt diastolic arrest was obtained. Left ventricular decompression was confirmed. The heart was cooled systemically with iced saline with an insulation pad in place to protect the phrenic nerve. Throughout the cross-clamp period, at 20-30 minute intervals, antegrade blood cardioplegia was administered to maintain asystole. We then inspected the cardiac surface and coronary anatomy. Initially, we opened up a 2 mm diagonal artery and performed anastomosis with a portion of vein graft and a end to side fashion distally with 7-0 Prolene suture and proximal medial 4 mm aortotomy with 5-0 Prolene. We next turned our attention to the obtuse marginal branch of the circumflex artery. It also too was approximate 2 mm in size. Second portion of vein was anastomosed distally with 7-0 Prolene suture in proximally to a 4 mm aortotomy with 5-0 Prolene suture. Inspection of the LAD revealed a vessel greater than 2 mL in size. The distal lesion which was palpable was quite far at the apex and was not felt to be beneficial for grafting at this level or lower. Therefore, given the large territory covered, we elected to proceed with grafting in the midportion of the vessel. With the rewarming phase of bypass continuing, the left internal mammary artery was brought through a left anterior pericardial window into the field. The LAD w as opened up in its mid one-third and was approximately 2.5 mm in size. The SAUL was then anastomosed to the LAD with a running 7-0 Prolene suture. It should be noted that all distal coronary anastomoses were performed over the appropriate size coronary shunt which was removed prior to securing the distal suture line. Following this, aortic cross-clamp was released and de-airing maneuvers were per formed through the aortic root vent, as well as being confirmed by transesophageal echocardiography. Dobutamine at 2 mcg per kilogram per minute was administered with good chronotropic and inotropic affect. The heart was cardioverted x1 into sinus bradycardia. Patient was then performed in DDD mode at 80 bpm with good capture. After adequate recovery from the cross-clamp period and confirmation of cardiac stability, the patient was weaned from bypass without difficulty. Venous cannula was removed. Heparin was reversed with Protamine and confirmed by measurement of activated clotting time. The heart was then decannulated and cannulation sites were oversewn as required. Pacing wires were placed and brought through the skin and secured. Radiopaque markers were placed on the vein grafts at the level of aorta. Two mediastinal drains were placed and connected to Pleur-evac suction. Pacing was required for approximately 10 minutes and then was discontinued with sinus rhythm at 80 bpm. The wound was carefully irrigated and hemostasis was confirmed. Ankeney retractor was removed and sponge and needle count was correct. The sternum was then reapproximated very carefully with interrupted #7 stainless steel wire with Surgicel strips used beneath the sternal table. Fascia was closed with #1 Vicryl suture with the next layers being closed with 2-0 and 3-0 suture. The skin was reapproximated carefully in a subcuticular manner. Sterile dressings were applied, followed by a vacuum-assisted dressing. Mr. Townsend was carefully removed from the operating room table and transferred to the Intensive Care Unit. His was then counseled by phone as to the details of the procedure.
[2021-03-15 14:53] LABS: ABG PCO2 41.4 mmHg (35-45); ABG PH Result 7.35 (7.35-7.45); Alveolar-Arterial Oxygen Gradi 27.6 mmHg (5-10); Base Excess ABG -2.5 mmol/L (-2.0-2.0); Blood Gas Allen Test Pos; Blood Gas Operator Identificat CAK; Blood Gas Sample Site ALINE; Blood Gas Sample Type Arterial; Carboxyhemoglobin 0.9 %THgb (0.4-20.1); HCO3 ABG 22.9 mmol/L (22-26); HGB O2 Sat 97.9 % (95-100); Ionized Calcium Level - ABG 1.1 mmol/L (1.1-1.4); Methemoglobin 1.3 % (0.4-1.5); Oxygen Device VENT; Oxygen Saturation ABG > 100.0; Potassium Level - ABG 4.3 mmol/L (3.5-5.0); Total Hemoglobin 11.4 g/dL (14-18)
--- NOTE | 2021-03-15 14:53 | PC.NUTR ---
Received consult for nutrition education. Assessed Pt's protein and kcal needs and will FU in 1-2 days when Pt is no longer mechanically ventilated and can be interviewed.
[2021-03-15 14:57] LABS: Basophils # 0.1 10^3/uL (0.0-0.1); Basophils % 0.4 %; Eosinophils # 0.1 10^3/uL (0.0-0.8); Eosinophils % 0.3 %; Hematocrit 31.1 % (42.0-52.0); Lymphocytes # 1.3 10^3/uL (0.8-4.8); Lymphocytes % 7.8 %; Mean Corpuscular HGB Conc 32.2 g/dL (30.0-36.0); Mean Corpuscular Hemoglobin 29.5 pg (28.0-34.0); Mean Corpuscular Volume 91.7 fl (80-94); Mean Platelet Volume 10.5 fL (7.4-10.4); Monocytes # 0.8 10^3/uL (0.2-0.9); Monocytes % 4.5 %; Neutrophils # 14.41 10^3/uL (1.8-7.7); Nucleated Red Blood Cells % 0 %; Platelet Count 191 10^3/cmm (130-400); Red Blood Count 3.39 10^6/uL (4.1-5.3); Red Cell Distribution Width 13.7 % (12.1-15.1); White Blood Count 16.8 10^3/uL (4.0-10.0)
[2021-03-15] MEDS: albumin 12.5 GM/250 ML VIAL IV ×2 (15:08→21:48)
--- NOTE | 2021-03-15 15:13 | ANE.PACU2 ---
Inpatient post-anesthesia follow up: Airway intact: Yes Vital signs: Temperature 97.0 F Pulse Rate 76 Respiratory Rate 12 Blood Pressure 146/89 Pulse Oximetry 100 Oxygen Delivery Me thod Mechanical Ventila tion Oxygen Flow Rate Fraction of Inspir ed Oxygen 100 Hydration adequate: Yes Nausea and vomiting: No Pain level: 3 Additional Comments: Intubated/ventilated to ICU, stable.
[2021-03-15 15:30] LABS: INR 1.25 (0.8-1.2)
[2021-03-15 15:31] LABS: Partial Thromboplastin Time 31.5 SECONDS (23.9-36.7)
[2021-03-15 15:37] LABS: Blood Urea Nitrogen 13 mg/dL (8-23); Calcium 7.5 mg/dL (8.5-10.5); Carbon Dioxide 21 mmol/L (22-29); Chloride 111 mmol/L (98-107); Glomerular Filtration Rate 136.5 mL/min (90-130); Glucose 135 mg/dL (65-115); Magnesium 2.6 mg/dL (1.7-2.3); Osmolality Calculated 294 mOsm/kg (285-295); Sodium 141 mmol/L (136-145)
[2021-03-15 15:38] LABS: Anion Gap 13.5 (5-19); Potassium 4.5 mmol/L (3.5-5.1)
[2021-03-15] MEDS: LORazepam 2 mg/mL INJ 1 mL IVP (16:12)
[2021-03-15 17:41] LABS: Basophils # 0.1 10^3/uL (0.0-0.1); Basophils % 0.3 %; Eosinophils % 0.1 %; Hematocrit 28.7 % (42.0-52.0); Hemoglobin 9.4 g/dL (11.7-16.6); Lymphocytes # 1.2 10^3/uL (0.8-4.8); Lymphocytes % 7.1 %; Mean Corpuscular HGB Conc 32.8 g/dL (30.0-36.0); Mean Corpuscular Hemoglobin 29.8 pg (28.0-34.0); Mean Corpuscular Volume 91.1 fl (80-94); Mean Platelet Volume 10.1 fL (7.4-10.4); Monocytes # 0.9 10^3/uL (0.2-0.9); Monocytes % 5.8 %; Neutrophils # 13.98 10^3/uL (1.8-7.7); Neutrophils % 85.8 %; Nucleated Red Blood Cells % 0 %; Platelet Count 257 10^3/cmm (130-400); Red Blood Count 3.15 10^6/uL (4.1-5.3); Red Cell Distribution Width 13.8 % (12.1-15.1); White Blood Count 16.3 10^3/uL (4.0-10.0)
[2021-03-15 17:57] LABS: Anion Gap 13.4 (5-19); Blood Urea Nitrogen 13 mg/dL (8-23); Calcium 7.6 mg/dL (8.5-10.5); Carbon Dioxide 21 mmol/L (22-29); Chloride 108 mmol/L (98-107); Glomerular Filtration Rate 136.5 mL/min (90-130); Glucose 126 mg/dL (65-115); Magnesium 2.7 mg/dL (1.7-2.3); Osmolality Calculated 288 mOsm/kg (285-295); Potassium 4.4 mmol/L (3.5-5.1); Sodium 138 mmol/L (136-145)
[2021-03-15 18:01] LABS: Glucose Point of Care 129 mg/dL (70-110)
[2021-03-15 18:01] LABS: Glucose Point of Care 137 mg/dL (70-110)
[2021-03-15 18:01] LABS: Glucose Point of Care 159 mg/dL (70-110)
[2021-03-15 18:01] LABS: Glucose Point of Care 144 mg/dL (70-110)
[2021-03-15] MEDS: aspirin 81 mg Chew Tablet PO (18:39)
[2021-03-15] MEDS: chlorhexidine gluconate 0.12% Btl 473 mL 15 ML MUCOUS MEM (18:46)
--- NOTE | 2021-03-15 18:55 | PC.NURSE ---
Report received form JOSEFINA Mares. Care assumed. Pt remains sedated and intubated. FIOS 40%, VC-SIMV. Og in place. Swanz at 52, patnet with good wave forms. Central line intact and patent. Insulin gtt, Nitor gtt at 60mcg/min, Propofol at 40 mcg/kg/min, IVF infusing without difficulties. 2 peripheral Iv noted. Art line in right radial patent with good wave form. Chest tubes patent and draining serosangiouness fluid, to suction and bubbling appropriately. Wound vac, patent with sponge compress, to chest. Pacmaker wires noted, Pacemaker off and not attached at this time. Sinus rhythm noted on monitor. C.I. 1.9. Urinary cath patnet and draining clear pale yellow urine. Pt remains restrained at this time. Will continue to monitor.
[2021-03-15 18:58] LABS: Glucose Point of Care 134 mg/dL (70-110)
[2021-03-15] MEDS: propofol 1,000 MG/100 ML INJ 18.62 MG IV (18:59)
[2021-03-15 20:22] LABS: Glucose Point of Care 130 mg/dL (70-110)
[2021-03-15 20:22] LABS: Glucose Point of Care 117 mg/dL (70-110)
[2021-03-15 20:58] LABS: Basophils % 0.2 %; Eosinophils % 0.1 %; Hematocrit 27.8 % (42.0-52.0); Hemoglobin 9.1 g/dL (11.7-16.6); Lymphocytes % 7.3 %; Mean Corpuscular HGB Conc 32.7 g/dL (30.0-36.0); Mean Corpuscular Hemoglobin 29.7 pg (28.0-34.0); Mean Corpuscular Volume 90.8 fl (80-94); Mean Platelet Volume 10.1 fL (7.4-10.4); Monocytes # 0.8 10^3/uL (0.2-0.9); Monocytes % 5.6 %; Neutrophils # 12.25 10^3/uL (1.8-7.7); Neutrophils % 86.2 %; Nucleated Red Blood Cells % 0 %; Platelet Count 264 10^3/cmm (130-400); Red Blood Count 3.06 10^6/uL (4.1-5.3); Red Cell Distribution Width 13.8 % (12.1-15.1); White Blood Count 14.2 10^3/uL (4.0-10.0)
--- NOTE | 2021-03-15 21:00 | PC.NURSE ---
Dr Calvert notified of BMP, HGb and HCT trending down. Nitro gtt and propofol reduced. Chest tube output greater than 200ml the past two hours. Orders received for chest xray, PT level, given 1 Albumin and to transfuse 1 unit of PRBCs.
[2021-03-15 21:18] LABS: Anion Gap 10.5 (5-19); Blood Urea Nitrogen 12 mg/dL (8-23); Calcium 7.3 mg/dL (8.5-10.5); Carbon Dioxide 22 mmol/L (22-29); Chloride 110 mmol/L (98-107); Glomerular Filtration Rate 168.5 mL/min (90-130); Glucose 125 mg/dL (65-115); Osmolality Calculated 287 mOsm/kg (285-295); Potassium 4.5 mmol/L (3.5-5.1); Sodium 138 mmol/L (136-145)
[2021-03-15 21:30] LABS: Glucose Point of Care 135 mg/dL (70-110)
--- NOTE | 2021-03-15 21:31 | XRR_ITS ---
PROCEDURE INFORMATION: Exam: XR Chest Exam date and time: 03/15/2021 9:31 PM Age: 60 years old Clinical indication: Other: Increased chest tube output; Prior surgery; Surgery type: Open heart TECHNIQUE: Imaging protocol: XR of the chest. Views: 1 view. COMPARISON: CR XR chest 1V portable [id number] 03/15/2021 1:03 PM FINDINGS: Tubes, catheters and devices: The gastric tube is been advanced with tip in the fundus. The right IJ central line, swan scanned catheter, chest tubes, and endotracheal tube are stable. Lungs: Improved atelectasis in the left base. Mild interstitial opacities in both lungs have improved. Pleural spaces: Unremarkable. No pleural effusion. No pneumothorax. Heart/Mediastinum: Heart size is upper normal. Bones/joints: Unremarkable. XR/XR chest 1V portable [id number] IMPRESSION: 1. Improved left base atelectasis. 2. Improved interstitial pulmonary edema. Radiation Dose CTDIVOL = (mGy): DLP = (mGy-cm)
[2021-03-15 22:06] LABS: INR 1.16 (0.8-1.2)
--- NOTE | 2021-03-15 22:35 | PC.NURSE ---
Dr Baker, came in to unit, reviewed Chest x ray, evaluated chest tube drainage and VS. Orders for 2 units of FFP to be given and to redraw labs at 0200 received.
[2021-03-15] MEDS: propofol 1,000 MG/100 ML INJ 16.29 MG IV (23:40)
[2021-03-16] VITALS (111 sets, daily range): BP systolic 111–153; BP diastolic 51–82; PULSE 76–105; RESP 3–30; TEMP 36.9–37.5; O2SAT 90–100
--- NOTE | 2021-03-16 | PC.NURSE ---
Chest tube atrium changed out,[place] water seal, per Dr Peguero's request.
--- NOTE | 2021-03-16 00:03 | PM.PN ---
Subjective Subjective: Interval history: Mr. Townsend is remained hemodynamically stable since his CABG. He was transported to the ICU at around 2 PM. Chest tube output has been above average, though it is noted he was on Plavix up until the time of his surgery from prior PTCA intervention to his RCA back in January. He has received a unit of packed RBCs as well as units of fresh frozen plasma. Follow-up chest x-ray around 10 PM reveals stable mediastinum and clear lung rice. Chest tube output is becoming a bit more serous. He remained hemodynamically stable and is responded well to volume. He was noted he did have a moderate sized gastric bubble which was relieved with placing the gastric tube to suction. He remains ventilated with FiO2 at 30%. He did receive 81 mg of aspirin approximately 2 hours after return to ICU. Vitals/I&O/Wt Last Vital Signs Temp 98.6 F 03/15/21 23:59 Pulse 77 03/15/21 23:59 Resp 15 03/15/21 23:59 BP 138/60 03/15/21 23:59 Pulse Ox 98 03/15/21 23:59 03/15/21 03/15/21 03/16/21 14:59 22:59 06:59 Intake Total 2850 / 2850 1080.93 / 3930.93 387.07 / 4318.00 Output Total 2525 / 2525 1746 / 4271 Balance 325 / 325 -665.07 / -340.07 387.07 / 47.00 Physical Exam Chest: COMMONS NORMALS: normal inspection of the chest CHEST: Yes Symmetrical chest wall rise OTHER: Wound VAC and support lines are in position. Resp: COMMON NORMALS: clear to auscultation bilaterally AUSCULTATION: clear to auscultation bilaterally Cardio: COMMON NORMALS: regular rate, regular rhythm and No murmurs present (Cardio) RATE: regular rate RHYTHM: regular rhythm Extremity: OTHER: 1+ peripheral edema. Right lower extremity is wrapped from saphenous vein harvesting. Urinary Catheter Management^: Cardenas: Cath Placed During This Visit: yes Reason for Continuing Indwelling Catheter: Accurate Measurement of Urinary Output in Critically Ill Patients Urinary Catheter Date of Insertion: 03/15/21 Urinary Catheter Time of Insertion: 07:00 Data : 03/15/21 20:51 03/15/21 20:51 A&P Assessment and plan (1) Status post aorto-coronary artery bypass graft: Status post CABG x3. Slowly decreasing chest tube output. Chest x-ray is clear. Hemodynamically stable. No arrhythmias. Plan: We will repeat lab at 2 AM and again at 6 AM along with chest x-ray at that time. We will complete infusion of 2 units of FFP due to elevated prothrombin time. I will hold on reinstituting Plavix until I confirm decreasing chest tube output. Status: Acute Attestations Medical Necessity Statement*: Postop CABG x3 Time Spent in Patient Care: Greater than 35 minutes Critical Care Time: Critical Care Time (min): 30 Procedures Arterial Line Size (Gauge): 20 Coding Level of Care Code Acute Investment Banking Associate for jasmine Griggs Diagnoses Status post aorto-coronary artery bypass graft Z95.1
[2021-03-16] MEDS: ondansetron 2 mg/ML SDV 2 mL 4 MG IVP (01:19)
[2021-03-16] MEDS: LORazepam 2 mg/mL INJ 1 mL IVP (01:23)
[2021-03-16] MEDS: oxyCODONE-APAP 5-325 mg Tablet PO ×4 (01:43→23:46)
[2021-03-16] MEDS: morphine 4 mg/mL SDV 1 mL 2 MG IVP ×6 (02:10→22:17)
[2021-03-16 02:11] LABS: Basophils % 0.2 %; Eosinophils % 0.1 %; Hematocrit 26.7 % (42.0-52.0); Hemoglobin 8.6 g/dL (11.7-16.6); Lymphocytes # 1.5 10^3/uL (0.8-4.8); Lymphocytes % 16.4 %; Mean Corpuscular HGB Conc 32.2 g/dL (30.0-36.0); Mean Corpuscular Hemoglobin 29.5 pg (28.0-34.0); Mean Corpuscular Volume 91.4 fl (80-94); Mean Platelet Volume 10.5 fL (7.4-10.4); Monocytes # 0.6 10^3/uL (0.2-0.9); Monocytes % 6.1 %; Neutrophils % 76.8 %; Nucleated Red Blood Cells % 0 %; Platelet Count 198 10^3/cmm (130-400); Red Blood Count 2.92 10^6/uL (4.1-5.3); Red Cell Distribution Width 13.9 % (12.1-15.1)
[2021-03-16 02:30] LABS: INR 1.08 (0.8-1.2)
[2021-03-16 02:31] LABS: Blood Urea Nitrogen 11 mg/dL (8-23); Calcium 7.7 mg/dL (8.5-10.5); Carbon Dioxide 24 mmol/L (22-29); Chloride 108 mmol/L (98-107); Glomerular Filtration Rate 168.5 mL/min (90-130); Glucose 100 mg/dL (65-115); Magnesium 2.6 mg/dL (1.7-2.3); Osmolality Calculated 287 mOsm/kg (285-295); Sodium 139 mmol/L (136-145)
--- NOTE | 2021-03-16 02:32 | PC.NURSE ---
Hemaglobin 8.6. Second unit of PRBCs started, as ordered.
[2021-03-16 03:30] LABS: ABG PCO2 31.7 mmHg (35-45); ABG PH Result 7.46 (7.35-7.45); Base Excess ABG -1.2 mmol/L (-2.0-2.0); Blood Gas Operator Identificat JB; Blood Gas Sample Type Arterial; Carboxyhemoglobin 1.1 %THgb (0.4-20.1); HCO3 ABG 22.3 mmol/L (22-26); HGB O2 Sat 95.8 % (95-100); Methemoglobin 0.9 % (0.4-1.5); Oxygen Device VENT; Oxygen Saturation ABG 97.7; PO2 ABG 78.7 mmHg (80.0-100.0); Potassium Level - ABG 3.8 mmol/L (3.5-5.0); Total Hemoglobin 8.5 g/dL (14-18)
--- NOTE | 2021-03-16 03:35 | PC.NURSE ---
Pt extubated and OG removed. Nasal cannula applied at 2 lpm. Pt tolerating. Pt belched twice immediately after extubation.
--- NOTE | 2021-03-16 03:47 | PC.RESP ---
pt extubated to 3lm nc without incident
[2021-03-16] MEDS: fentaNYL 50 mcg/mL INJ 2mL IVP ×3 (03:48→11:04)
--- NOTE | 2021-03-16 04:31 | PC.NURSE ---
Pt offered ice chips. He is able to manipulate ice in his mouth, no difficulty swallowing noted.
[2021-03-16 05:03] LABS: Glucose Point of Care 114 mg/dL (70-110)
[2021-03-16 05:03] LABS: Glucose Point of Care 105 mg/dL (70-110)
[2021-03-16 05:03] LABS: Glucose Point of Care 112 mg/dL (70-110)
[2021-03-16 05:03] LABS: Glucose Point of Care 120 mg/dL (70-110)
[2021-03-16 05:03] LABS: Glucose Point of Care 117 mg/dL (70-110)
[2021-03-16 05:03] LABS: Glucose Point of Care 104 mg/dL (70-110)
[2021-03-16 05:03] LABS: Glucose Point of Care 104 mg/dL (70-110)
[2021-03-16 05:03] LABS: Glucose Point of Care 99 mg/dL (70-110)
[2021-03-16] MEDS: sodium chloride 0.9% 1,000 ML 75 ML IV ×2 (05:27→20:24)
[2021-03-16] MEDS: nitroglycerin drip 50 MG/250 ML PREMIX 22.5 MG IV ×2 (05:27→16:53)
--- NOTE | 2021-03-16 06:00 | ECG_ITS ---
[facility] Test Date: 2021-03-16 Pat Name: Mariano Townsend Department: Room: ICU11 Gender: Male Health Care Sanitary Technician: : 1960 Requested By: Epifanio Peguero Order Number: [id number] Steve MD: Sofia Washington M.D. Measurements Intervals [place] Rate: 95 P: 31 SD: 152 QRS: 41 QRSD: 81 T: -14 QT: 348 QTc: 438 Interpretive Statements SINUS RHYTHM NONSPECIFIC T-WAVE ABNORMALITY Compared to ECG 03/15/2021 17:44:52 T-wave abnormality now present ST (T wave) deviation no longer present Early repolarization no longer present Electronically Signed On 03-16-2021 17:32:30 CDT by Sofia Washington M.D. [id number]
--- NOTE | 2021-03-16 06:00 | XR_ITS ---
WS: [id number] XR chest 1V portable [id number] REASON FOR EXAM: POD#1 s/p cabg FINDINGS: Compared to the previous examination 03/15/2021, endotracheal tube and nasogastric tube is been remove d. Right transient jugular [place]-Velasquez catheter remains in position, probably in the right main pulmona ry artery. Mediastinal and left chest tube remain in position. Lungs are fully inflated with minimal interstitial and atelectatic densities in the lung bases. Relat ively stable compared to the previous day. No new abnormalities. XR/XR chest 1V portable [id number] IMPRESSION: Stable chest post removal endotracheal tube and nasogastric tube.
[2021-03-16 06:25] LABS: Basophils % 0.4 %; Eosinophils % 0.2 %; Hematocrit 29.3 % (42.0-52.0); Hemoglobin 9.6 g/dL (11.7-16.6); Lymphocytes # 1.7 10^3/uL (0.8-4.8); Mean Corpuscular HGB Conc 32.8 g/dL (30.0-36.0); Mean Corpuscular Hemoglobin 29.6 pg (28.0-34.0); Mean Corpuscular Volume 90.4 fl (80-94); Mean Platelet Volume 10.4 fL (7.4-10.4); Monocytes # 0.8 10^3/uL (0.2-0.9); Monocytes % 6.7 %; Neutrophils # 8.72 10^3/uL (1.8-7.7); Neutrophils % 77.3 %; Nucleated Red Blood Cells % 0 %; Platelet Count 179 10^3/cmm (130-400); Red Blood Count 3.24 10^6/uL (4.1-5.3); Red Cell Distribution Width 13.9 % (12.1-15.1); White Blood Count 11.3 10^3/uL (4.0-10.0)
[2021-03-16 06:44] LABS: INR 1.12 (0.8-1.2); Partial Thromboplastin Time 32.7 SECONDS (23.9-36.7)
[2021-03-16 06:51] LABS: Anion Gap 10.7 (5-19); Blood Urea Nitrogen 10 mg/dL (8-23); Calcium 7.6 mg/dL (8.5-10.5); Carbon Dioxide 23 mmol/L (22-29); Chloride 109 mmol/L (98-107); Glomerular Filtration Rate 136.5 mL/min (90-130); Glucose 112 mg/dL (65-115); Magnesium 2.3 mg/dL (1.7-2.3); Osmolality Calculated 288 mOsm/kg (285-295); Potassium 3.7 mmol/L (3.5-5.1); Sodium 139 mmol/L (136-145)
--- NOTE | 2021-03-16 07:07 | PM.PN ---
Subjective Subjective: Interval history: Postop day #1 status post CABG x3. A bit greater chest tube output early postop than usual, though this has tapered down. Chest tube output approximately 350 cc over the past 7 hours. Chest x-ray is clear. Cardiac silhouette is stable. No arrhythmias. Hemodynamics are good with an index of over 3. H&H is stable. Extubated around 3 AM. Postop sternotomy discomfort appears to be under good control. Intake and output is about even. Vitals/I&O/Wt Last Vital Signs Temp 98.8 F 03/16/21 02:26 Pulse 94 03/16/21 05:21 Resp 19 H 03/16/21 06:28 BP 146/63 03/16/21 03:15 Pulse Ox 95 03/16/21 06:28 03/15/21 03/16/21 03/16/21 22:59 06:59 14:59 Intake Total 1330.93 / 4180.93 1383.260 / 5564.190 Output Total 1746 / 4271 1343 / 5614 153 / 153 Balance -415.07 / -90.07 40.260 / -49.810 -153 / -153 Weight last 48 hrs Weight 199 lb 8 oz Physical Exam Chest: OTHER: Surgical dressing is in place. Chest wall is stable. Resp: OTHER: Basilar crackles. Will require pulmonary toilet. Cardio: COMMON NORMALS: regular rate, regular rhythm, S1 normal heart sound present, No gallops present (Cardio) and No murmurs present (Cardio) RATE: regular rate RHYTHM: regular rhythm HEART SOUNDS: S1 normal heart sound present Extremity: OTHER: Modest peripheral edema. Urinary Catheter Management^: Cardenas: Cath Placed During This Visit: yes Reason for Continuing Indwelling Catheter: Accurate Measurement of Urinary Output in Critically Ill Patients Urinary Catheter Date of Insertion: 03/15/21 Urinary Catheter Time of Insertion: 07:00 Data : 03/16/21 06:15 03/16/21 06:15 A&P Assessment and plan (1) Status post aorto-coronary artery bypass graft: POD #1 status post CABG x3 Plan: Aspirin 81 mg daily. Metoprolol 25 mg twice daily. Lipitor 40 mg nightly. CBC, BMP, chest x-ray in a.m. Out of bed in chair this afternoon. I will hold on resumption of Plavix for least another 12 hours until I assess chest tube output. Further antihypertensives will probably be required. I will seek recommendation of Dr. Charles as this is needed. Status: Acute Attestations Medical Necessity Statement*: Postop day #1 status post CABG x3 Time Spent in Patient Care: 16 - 35 minutes Procedures Arterial Line Size (Gauge): 20 Coding Level of Care Code Acute Stencil Inspector for Nicol Fwd Diagnoses Status post aorto-coronary artery bypass graft Z95.1
--- NOTE | 2021-03-16 07:08 | PC.NURSE ---
Shift Note: Pt alert and oriented. he was extubated after 0300, to 2lpm/NC. At beginning of shift , the chest tubes were draining quit a bit., see I & O flowsheet. His HCT and Hbg trending down. He received Albumin and a unit of PRBCs at that time. Dr Peguero came in to evaluate. 2 units of FFP ordered and infused. The 0200 labs showed his Hgb was less than 9, so an additional unit of PRBCs given this shift. He stayed hypertensive, Nitro adjusted down then back up again. Nitroprusside started, now at 1015mcg/kg/min. Insulin gtt and IVF also infusing. Lungs remain clear. Sinus rhythm, only 1 PVC noted, throughout shift. He has had excellent urine output. Frequent safety and comfort rounds continue. Orders and/or nursing care completed as indicated. Patient monitored for response to intervention and treatment(s). Education provided includes Propofol, Fentanyl and sternal precautions. Patient and/or small business representative verbalized understanding, but we will continue to reinforce. . Will continue to monitor.
[2021-03-16 07:37] LABS: ABG PCO2 37.2 mmHg (35-45); Arterial Blood Gas Hematocrit 39.9 % (42-52); Base Excess ABG -1.5 mmol/L (-2.0-2.0); Blood Gas Sample Site Not specified; Blood Gas Sample Type Arterial; Carboxyhemoglobin 1.9 %THgb (0.4-20.1); HGB O2 Sat 97.9 % (95-100); Ionized Calcium Level - ABG 1.2 mmol/L (1.1-1.4); Methemoglobin 0.5 % (0.4-1.5); Oxygen Saturation ABG > 100.0; Potassium Level - ABG 4.1 mmol/L (3.5-5.0)
[2021-03-16 07:47] LABS: Glucose Point of Care 122 mg/dL (70-110)
[2021-03-16 07:47] LABS: Glucose Point of Care 33 mg/dL (70-110)
[2021-03-16 07:47] LABS: Glucose Point of Care 113 mg/dL (70-110)
[2021-03-16 07:53] LABS: ABG PH Result 7.35 (7.35-7.45); Arterial Blood Gas Hematocrit 38.9 % (42-52); Base Excess ABG -3.1 mmol/L (-2.0-2.0); Blood Gas Sample Site Not specified; Blood Gas Sample Type Arterial; Carboxyhemoglobin 1.6 %THgb (0.4-20.1); HCO3 ABG 22.2 mmol/L (22-26); HGB O2 Sat 98.1 % (95-100); Ionized Calcium Level - ABG 1.1 mmol/L (1.1-1.4); Methemoglobin 0.5 % (0.4-1.5); Oxygen Saturation ABG > 100.0; Potassium Level - ABG 4.4 mmol/L (3.5-5.0); Total Hemoglobin 12.7 g/dL (14-18)
[2021-03-16 07:55] LABS: ABG PCO2 34.2 mmHg (35-45); ABG PH Result 7.45 (7.35-7.45); Arterial Blood Gas Hematocrit 25.6 % (42-52); Base Excess ABG -0.1 mmol/L (-2.0-2.0); Blood Gas Sample Site Not specified; Blood Gas Sample Type Arterial; Carboxyhemoglobin 1.7 %THgb (0.4-20.1); HCO3 ABG 23.7 mmol/L (22-26); HGB O2 Sat 98.2 % (95-100); Ionized Calcium Level - ABG 0.9 mmol/L (1.1-1.4); Methemoglobin 0.7 % (0.4-1.5); Oxygen Saturation ABG > 100.0; Potassium Level - ABG 5.5 mmol/L (3.5-5.0); Total Hemoglobin 8.3 g/dL (14-18)
[2021-03-16 07:58] LABS: ABG PCO2 37.4 mmHg (35-45); ABG PH Result 7.41 (7.35-7.45); Base Excess ABG -0.7 mmol/L (-2.0-2.0); Blood Gas Sample Site Not specified; Blood Gas Sample Type Venous; Carboxyhemoglobin 2.2 %THgb (0.4-20.1); HCO3 ABG 23.7 mmol/L (22-26); Methemoglobin 0.6 % (0.4-1.5); Oxygen Saturation ABG 89.5; Potassium Level - ABG 5.2 mmol/L (3.5-5.0); Total Hemoglobin 8.2 g/dL (14-18)
[2021-03-16 08:00] LABS: ABG PCO2 36.3 mmHg (35-45); ABG PH Result 7.42 (7.35-7.45); Arterial Blood Gas Hematocrit 24.4 % (42-52); Base Excess ABG -0.9 mmol/L (-2.0-2.0); Blood Gas Sample Site Not specified; Blood Gas Sample Type Arterial; Carboxyhemoglobin 1.7 %THgb (0.4-20.1); HCO3 ABG 23.4 mmol/L (22-26); HGB O2 Sat 97.8 % (95-100); Oxygen Saturation ABG > 100.0; Potassium Level - ABG 5.9 mmol/L (3.5-5.0)
[2021-03-16 08:02] LABS: ABG PCO2 39.1 mmHg (35-45); ABG PH Result 7.38 (7.35-7.45); Arterial Blood Gas Hematocrit 24.8 % (42-52); Base Excess ABG -1.9 mmol/L (-2.0-2.0); Blood Gas Sample Site Not specified; Blood Gas Sample Type Arterial; Carboxyhemoglobin 1.9 %THgb (0.4-20.1); HCO3 ABG 23.1 mmol/L (22-26); HGB O2 Sat 97.7 % (95-100); Methemoglobin 0.9 % (0.4-1.5); Oxygen Saturation ABG > 100.0; Potassium Level - ABG 6.2 mmol/L (3.5-5.0); Total Hemoglobin 8.1 g/dL (14-18)
[2021-03-16 08:04] LABS: ABG PCO2 39.6 mmHg (35-45); ABG PH Result 7.41 (7.35-7.45); Arterial Blood Gas Hematocrit 24.8 % (42-52); Base Excess ABG 0.7 mmol/L (-2.0-2.0); Blood Gas Sample Site Not specified; Blood Gas Sample Type Arterial; Carboxyhemoglobin 1.9 %THgb (0.4-20.1); HCO3 ABG 25.3 mmol/L (22-26); Methemoglobin 0.8 % (0.4-1.5); Oxygen Saturation ABG > 100.0; Potassium Level - ABG 5.6 mmol/L (3.5-5.0); Total Hemoglobin 8.1 g/dL (14-18)
[2021-03-16 08:06] LABS: ABG PCO2 42.9 mmHg (35-45); ABG PH Result 7.34 (7.35-7.45); Arterial Blood Gas Hematocrit 26.2 % (42-52); Base Excess ABG -2.3 mmol/L (-2.0-2.0); Blood Gas Sample Site Not specified; Blood Gas Sample Type Arterial; Carboxyhemoglobin 1.5 %THgb (0.4-20.1); HCO3 ABG 23.4 mmol/L (22-26); HGB O2 Sat 96.7 % (95-100); Ionized Calcium Level - ABG 1.2 mmol/L (1.1-1.4); Methemoglobin 0.7 % (0.4-1.5); Oxygen Saturation ABG 98.9; Potassium Level - ABG 4.5 mmol/L (3.5-5.0); Total Hemoglobin 8.5 g/dL (14-18)
[2021-03-16 08:08] LABS: ABG PCO2 41.5 mmHg (35-45); ABG PH Result 7.35 (7.35-7.45); Alveolar-Arterial Oxygen Gradi 0.4 mmHg (5-10); Arterial Blood Gas Hematocrit 32.7 % (42-52); Base Excess ABG -2.7 mmol/L (-2.0-2.0); Blood Gas Sample Site Not specified; Blood Gas Sample Type Arterial; Carboxyhemoglobin 1.7 %THgb (0.4-20.1); HCO3 ABG 22.8 mmol/L (22-26); HGB O2 Sat 95.4 % (95-100); Ionized Calcium Level - ABG 1.2 mmol/L (1.1-1.4); Methemoglobin 0.5 % (0.4-1.5); Oxygen Saturation ABG 97.6; PO2 ABG 94.8 mmHg (80.0-100.0); Potassium Level - ABG 4.1 mmol/L (3.5-5.0); Total Hemoglobin 10.7 g/dL (14-18)
--- NOTE | 2021-03-16 08:09 | PC.NURSE ---
Spoke with Kim durán am. Updated her on pt condition and answered all questions.
[2021-03-16] MEDS: pantoprazole 40 mg SDV IVP (08:46)
[2021-03-16] MEDS: chlorhexidine gluconate 0.12% Btl 473 mL 15 ML MUCOUS MEM (08:47)
[2021-03-16] MEDS: metoprolol tartrate 25 mg Tablet PO ×2 (08:47→20:01)
[2021-03-16] MEDS: aspirin 81 mg Chew Tablet PO (08:47)
[2021-03-16 10:11] LABS: Glucose Point of Care 119 mg/dL (70-110)
[2021-03-16 10:11] LABS: Glucose Point of Care 112 mg/dL (70-110)
[2021-03-16 10:11] LABS: Glucose Point of Care 119 mg/dL (70-110)
--- NOTE | 2021-03-16 13:00 | PC.NURSE ---
SWAN removed without difficulty.
--- NOTE | 2021-03-16 13:30 | PC.NURSE ---
Cordis removed without difficulty.
--- NOTE | 2021-03-16 14:34 | PC.NURSE ---
1 fl OZ of Tavo Ethan given per Dr. Peguero orders.
--- NOTE | 2021-03-16 15:49 | PM.MISC ---
Miscellaneous Note Purpose of Documentation: Up in chair on afternoon rounds. Mr. Townsend looks quite good. Chest tube output is becoming more serous. No arrhythmias reported. Heart rate 92. He received 1 dose of metoprolol 25 mg. Second dose is due in a few hours. Night pride is off. He did tolerate some clear liquids for lunch. We will advance this to full liquids for the evening meal. Will continue postop rehabilitation. A.m. lab and chest x-ray are pending. Postop sternotomy discomfort appears to be under good control.
[2021-03-16 17:11] LABS: Glucose Point of Care 118 mg/dL (70-110)
[2021-03-16 17:11] LABS: Glucose Point of Care 124 mg/dL (70-110)
[2021-03-16 17:11] LABS: Glucose Point of Care 105 mg/dL (70-110)
[2021-03-16 17:11] LABS: Glucose Point of Care 113 mg/dL (70-110)
[2021-03-16 18:30] LABS: Glucose Point of Care 108 mg/dL (70-110)
[2021-03-16] MEDS: insulin regular-human 250 UNIT in sodium chloride 0.9% 250 ML IV (19:00)
[2021-03-16 19:15] LABS: Glucose Point of Care 101 mg/dL (70-110)
[2021-03-16] MEDS: atorvastatin 40 mg Tablet PO (20:01)
[2021-03-16 21:30] LABS: Glucose Point of Care 102 mg/dL (70-110)
[2021-03-16 21:30] LABS: Glucose Point of Care 88 mg/dL (70-110)
[2021-03-16 22:14] LABS: Glucose Point of Care 104 mg/dL (70-110)
[2021-03-16 23:07] LABS: Glucose Point of Care 102 mg/dL (70-110)
[2021-03-16] MEDS: labetalol 5 mg/mL SDV 20mL 10 MG IVP (23:47)
[2021-03-17] VITALS (48 sets, daily range): BP systolic 110–163; BP diastolic 61–89; PULSE 79–97; RESP 9–32; TEMP 36.8–37.3; O2SAT 88–97
[2021-03-17 00:08] LABS: Glucose Point of Care 105 mg/dL (70-110)
[2021-03-17 01:08] LABS: Glucose Point of Care 107 mg/dL (70-110)
[2021-03-17] MEDS: morphine 4 mg/mL SDV 1 mL 2 MG IVP ×3 (01:50→19:09)
[2021-03-17 02:09] LABS: Glucose Point of Care 104 mg/dL (70-110)
[2021-03-17] MEDS: labetalol 5 mg/mL SDV 20mL 10 MG IVP ×2 (03:04→18:32)
[2021-03-17] MEDS: fentaNYL 50 mcg/mL INJ 2mL IVP (03:10)
[2021-03-17 03:17] LABS: Glucose Point of Care 98 mg/dL (70-110)
[2021-03-17] MEDS: nitroglycerin drip 50 MG/250 ML PREMIX 22.5 MG IV (04:15)
[2021-03-17 04:22] LABS: Glucose Point of Care 102 mg/dL (70-110)
[2021-03-17 04:22] LABS: Basophils # 0.1 10^3/uL (0.0-0.1); Basophils % 0.5 %; Eosinophils # 0.1 10^3/uL (0.0-0.8); Eosinophils % 1.1 %; Hematocrit 28.2 % (42.0-52.0); Hemoglobin 9.2 g/dL (11.7-16.6); Lymphocytes # 2.7 10^3/uL (0.8-4.8); Lymphocytes % 20.2 %; Mean Corpuscular HGB Conc 32.6 g/dL (30.0-36.0); Mean Corpuscular Hemoglobin 29.8 pg (28.0-34.0); Mean Corpuscular Volume 91.3 fl (80-94); Mean Platelet Volume 10.5 fL (7.4-10.4); Monocytes % 7.3 %; Neutrophils # 9.22 10^3/uL (1.8-7.7); Neutrophils % 70.4 %; Nucleated Red Blood Cells % 0 %; Platelet Count 169 10^3/cmm (130-400); Red Blood Count 3.09 10^6/uL (4.1-5.3); Red Cell Distribution Width 14.2 % (12.1-15.1); White Blood Count 13.1 10^3/uL (4.0-10.0)
[2021-03-17 04:43] LABS: INR 1.14 (0.8-1.2)
[2021-03-17 04:44] LABS: Partial Thromboplastin Time 34.9 SECONDS (23.9-36.7)
[2021-03-17 04:51] LABS: Anion Gap 10.8 (5-19); Blood Urea Nitrogen 7 mg/dL (8-23); Calcium 7.9 mg/dL (8.5-10.5); Carbon Dioxide 21 mmol/L (22-29); Chloride 107 mmol/L (98-107); Glomerular Filtration Rate 168.5 mL/min (90-130); Glucose 101 mg/dL (65-115); Osmolality Calculated 278 mOsm/kg (285-295); Potassium 3.8 mmol/L (3.5-5.1); Sodium 135 mmol/L (136-145)
[2021-03-17 05:09] LABS: Glucose Point of Care 114 mg/dL (70-110)
--- NOTE | 2021-03-17 05:57 | P.PN_ITS ---
Subjective Subjective: Interval history: Postop day #2 status post CABG x3. Up in chair on rounds. Nurses report no concerns overnight. Did require 1 dose of labetalol for blood pressure control. Currently he is still on a nitroglycerin drip for blood pressure control. No arrhythmias noted. Heart rate is 82 this morning. Sinus rhythm. Chest tube output continues to decrease to just over 200 cc past 24 hours. Becoming more serous. Laboratory data reviewed. H&H is stable. Mild leukocytosis. Chest x-ray remains clear. Perhaps very small left pleural effusion. Cardiac silhouette stable on x-ray. Intake and output positive approximately 1300 cc past 24 hours Vitals/I&O/Wt Last Vital Signs Temp 99.1 F 03/17/21 04:00 Pulse 86 03/17/21 05:15 Resp 21 H 03/17/21 05:15 BP 122/64 03/17/21 05:15 Pulse Ox 95 03/17/21 05:15 03/16/21 03/16/21 03/17/21 14:59 22:59 06:59 Intake Total 1024.129 / 1668.994 2672.383 / 2573.512 510.5 / 3084.012 Output Total 608 / 608 580 / 1188 560 / 1748 Balance 416.129 / 416.129 969.383 / 1385.512 -49.5 / 1336.012 Weight last 48 hrs Weight 199 lb 8 oz Physical Exam Chest: COMMONS NORMALS: normal inspection of the chest OTHER: Wound VAC dressing and support lines remain in place. Resp: COMMON NORMALS: clear to auscultation bilaterally AUSCULTATION: clear to auscultation bilaterally OTHER: Will continue to emphasize pulmonary toilet. Cardio: COMMON NORMALS: regular rate, regular rhythm and S1 normal heart sound present RATE: regular rate RHYTHM: regular rhythm HEART SOUNDS: S1 normal heart sound present Extremity: OTHER: Decreasing peripheral edema. Urinary Catheter Management^: Cardenas: Cath Placed During This Visit: yes Reason for Continuing Indwelling Catheter: Accurate Measurement of Urinary Output in Critically Ill Patients Urinary Catheter Date of Insertion: 03/15/21 Urinary Catheter Time of Insertion: 07:00 Data : 03/17/21 03:54 03/17/21 03:54 A&P Assessment and plan (1) Status post aorto-coronary artery bypass graft: POD #2 status post CABG x3 Plan: Discontinue IV insulin. Transition to sliding scale. DC central line. Ambulate. Advance diet. We will need to add further antihypertensive support. Will assess chest tube output today and determine whether chest tube can be discontinued later today or tomorrow. CBC, BMP, chest x-ray in a.m. Status: Acute Attestations Medical Necessity Statement*: POD #2 status post CABG x3 Time Spent in Patient Care: 16 - 35 minutes Procedures Arterial Line Size (Gauge): 20 Coding Level of Care Code Acute Pipe Line Inspector for Chg Fwd Diagnoses Status post aorto-coronary artery bypass graft Z95.1
--- NOTE | 2021-03-17 06:00 | XR_ITS ---
WS: [id number] XR chest 1V portable [id number] REASON FOR EXAM: POD #2 status post CABG FINDINGS: The right transjugular Questa-Velasquez catheter has been removed. Transverse right jugular central venous l ine remains in place in proper position. Chest tubes are unchanged. Minimal interstitial change in both lung bases stable. No new findings are identified. XR/XR chest 1V portable [id number] IMPRESSION: Stable chest.
[2021-03-17] MEDS: oxyCODONE-APAP 5-325 mg Tablet PO ×2 (06:20→17:44)
[2021-03-17 06:27] LABS: Glucose Point of Care 114 mg/dL (70-110)
--- NOTE | 2021-03-17 06:29 | PC.NURSE ---
Dr. Peguero rounded. Gave orders to keep fluids for TKO, discontinue IV insulin, pull central line if adequate lines are in place. Continue care.
[2021-03-17] MEDS: aspirin 81 mg Chew Tablet PO (08:54)
[2021-03-17] MEDS: chlorhexidine gluconate 0.12% Btl 473 mL 15 ML MUCOUS MEM ×2 (08:54→18:41)
[2021-03-17] MEDS: clopidogrel 75 mg Tablet PO (08:54)
[2021-03-17] MEDS: metoprolol tartrate 25 mg Tablet PO ×2 (08:55→20:02)
--- NOTE | 2021-03-17 09:33 | PC.CHAP ---
Pastoral Care Encounter/Spiritual Assessment Type of Contact [] Declined device engineer visit [] Patient/Family/Request visit [] Outpatient visit [] Follow-up visit [] Physician referral [] Code/Alert [x] Routine visit [] Staff referral [] Actively dying [] Patient sleeping [] Family support [] [] Out of room [] Palliative care [] [] Receiving care in room [] Pre-surgical visit [] Trauma [] Long length of stay [x] ICU visit [] Other: Relational/Emotional Strength [] Patient feels connected with others/family/visitors/staff [] Distress [] Loneliness/isolation [] Abandonment Spirituality of Patient [x] Person of Jaleesa [] Attends Confucianism of their Jaleesa [x] Believes in Prayer [] Reads Bible or Zoroastrianism materials [] There are Spiritual issues to be addressed Chief Investment Officer Interventions [x] Prayer [x] Active listening [x] Non-anxious presence [x] Spiritual/emotional support [] Crisis/trauma care [] Spiritual counseling [] Bereavement support [] Provided bereavement packet [] Provided Bible/devotional materials [] Provided toy/stuffed animal, coloring book to patient or family member [] Provided Communion [] Anointing/[place] [] Salvation [x] Completed spiritual assessment [] Other: Impact on Illness or Injury [] Angry [] Fearful [] Anxious [] Often cries [] Exhaustion [] Unable to work [] Unable to attend jainism [] Unable to walk/stand [] Unable to read [] Unable to drive [] Unable to eat/drink [] Unable to sleep [] Unable to be with family [] Patient intubated [] Other: Summary setting up in chair... enjoying breakfast.. not the greatest not the worse.. delightful personality. heart surgery.. ready to get better and return home. Feels staff is very kind.. noted patient is blind Time spent with patient 15 min
--- NOTE | 2021-03-17 11:35 | PC.NURSE ---
ART and central line removed without difficulty. Cath tip intact.
[2021-03-17 11:38] LABS: Glucose Point of Care 162 mg/dL (70-110)
[2021-03-17] MEDS: FUROsemide 20 mg Tablet PO (17:52)
[2021-03-17] MEDS: atorvastatin 40 mg Tablet PO (20:02)
[2021-03-17 22:31] LABS: Glucose Point of Care 133 mg/dL (70-110)
[2021-03-18] VITALS (30 sets, daily range): BP systolic 118–175; BP diastolic 67–95; PULSE 79–97; RESP 9–26; TEMP 36.7–37.2; O2SAT 92–97
[2021-03-18] MEDS: morphine 4 mg/mL SDV 1 mL 2 MG IVP ×2 (01:07→03:08)
[2021-03-18] MEDS: oxyCODONE-APAP 5-325 mg Tablet PO ×3 (03:54→21:50)
[2021-03-18 05:32] LABS: Basophils # 0.1 10^3/uL (0.0-0.1); Basophils % 0.4 %; Eosinophils # 0.3 10^3/uL (0.0-0.8); Eosinophils % 2.2 %; Hematocrit 29.7 % (42.0-52.0); Hemoglobin 9.8 g/dL (11.7-16.6); Lymphocytes # 1.9 10^3/uL (0.8-4.8); Lymphocytes % 13.6 %; Mean Corpuscular Hemoglobin 30.2 pg (28.0-34.0); Mean Corpuscular Volume 91.4 fl (80-94); Mean Platelet Volume 10.8 fL (7.4-10.4); Monocytes # 0.8 10^3/uL (0.2-0.9); Monocytes % 5.4 %; Neutrophils # 10.77 10^3/uL (1.8-7.7); Neutrophils % 77.9 %; Nucleated Red Blood Cells % 0 %; Platelet Count 189 10^3/cmm (130-400); Red Blood Count 3.25 10^6/uL (4.1-5.3); Red Cell Distribution Width 13.9 % (12.1-15.1); White Blood Count 13.8 10^3/uL (4.0-10.0)
--- NOTE | 2021-03-18 06:00 | XR_ITS ---
WS: [id number] XR chest 1V portable [id number] REASON FOR EXAM: POD #3 status post CABG FINDINGS: Right transjugular central venous line is been removed. Substernal and left chest tubes remain in position. Resolving pulmonary opacities in the lower lungs. No new abnormality. XR/XR chest 1V portable [id number] IMPRESSION: Improving postoperative chest.
[2021-03-18] MEDS: ondansetron 2 mg/ML SDV 2 mL 4 MG IVP (06:02)
[2021-03-18] MEDS: sodium chloride 0.9% 1,000 ML 30 ML IV (06:03)
[2021-03-18 06:04] LABS: Anion Gap 12.9 (5-19); Blood Urea Nitrogen 8 mg/dL (8-23); Calcium 8.3 mg/dL (8.5-10.5); Carbon Dioxide 22 mmol/L (22-29); Chloride 104 mmol/L (98-107); Glomerular Filtration Rate 114.3 mL/min (90-130); Glucose 115 mg/dL (65-115); Osmolality Calculated 279 mOsm/kg (285-295); Potassium 3.9 mmol/L (3.5-5.1); Sodium 135 mmol/L (136-145)
[2021-03-18 07:42] LABS: Glucose Point of Care 127 mg/dL (70-110)
--- NOTE | 2021-03-18 09:06 | PC.CHAP ---
Pastoral Care Encounter/Spiritual Assessment Type of Contact [] Declined seed corn manager production visit [] Patient/Family/Request visit [] Outpatient visit [] Follow-up visit [] Physician referral [] Code/Alert [x] Routine visit [] Staff referral [] Actively dying [] Patient sleeping [] Family support [] [] Out of room [] Palliative care [] [] Receiving care in room [] Pre-surgical visit [] Trauma [] Long length of stay [x] ICU visit [] Other: Relational/Emotional Strength [] Patient feels connected with others/family/visitors/staff [] Distress [] Loneliness/isolation [] Abandonment Spirituality of Patient [x] Person of Jaleesa [] Attends Christian of their Jaleesa [] Believes in Prayer [] Reads Bible or Hinduism materials [] There are Spiritual issues to be addressed Child Life Therapist Interventions [x] Prayer [x] Active listening [x] Non-anxious presence [x] Spiritual/emotional support [] Crisis/trauma care [] Spiritual counseling [] Bereavement support [] Provided bereavement packet [] Provided Bible/devotional materials [] Provided toy/stuffed animal, coloring book to patient or family member [] Provided Communion [] Anointing/[place] [] Salvation [x] Completed spiritual assessment [] Other: Impact on Illness or Injury [] Angry [] Fearful [] Anxious [] Often cries [] Exhaustion [] Unable to work [] Unable to attend gnosticism [] Unable to walk/stand [] Unable to read [] Unable to drive [] Unable to eat/drink [] Unable to sleep [] Unable to be with family [] Patient intubated [] Other: Summary patient shared about children's- eyesight... patient is feeling much stronger today.. looking forward to our visit tomorrow. loves his family and country deeply Time spent with patient 10 min
[2021-03-18] MEDS: metoprolol tartrate 25 mg Tablet PO ×2 (09:26→20:34)
[2021-03-18] MEDS: aspirin 81 mg Chew Tablet PO (09:26)
[2021-03-18] MEDS: clopidogrel 75 mg Tablet PO (09:26)
[2021-03-18] MEDS: chlorhexidine gluconate 0.12% Btl 473 mL 15 ML MUCOUS MEM (09:28)
--- NOTE | 2021-03-18 09:28 | P.PN_ITS ---
Subjective Subjective: Interval history: Postop day #3 status post CABG x3. Up in chair on rounds. Nurses report no advance or concerns. Chest tube output approximately 240 cc past 24 hours. Still a bit sanguinous, which is not unexpected given reinstitution of Plavix secondary to RCA coronary stenting a couple of months ago. No arrhythmias noted. Intake and output is -1.4 L. Did receive 1 oral dose of Lasix yesterday. Vitals/I&O/Wt Last Vital Signs Temp 98.2 F 03/18/21 00:00 Pulse 90 03/18/21 06:00 Resp 22 H 03/18/21 03:54 BP 131/79 03/18/21 01:00 Pulse Ox 93 03/18/21 01:00 03/17/21 03/18/21 03/18/21 22:59 06:59 14:59 Intake Total 578.5 / 1150.0 450 / 1600.0 Output Total 350 / 1750 1250 / 3000 Balance 228.5 / -600.0 -800 / -1400.0 Weight last 48 hrs Weight 199 lb Physical Exam Chest: COMMONS NORMALS: normal palpation of entire chest wall OTHER: Wound VAC dressing and support lines are in position. Resp: COMMON NORMALS: normal respiratory effort EFFORT & INSPECTION: Yes able to speak in complete sentences and Yes symmetric chest movement OTHER: Proving expiratory effort. Pulling between 1000- 1500 cc on incentive spir ometry. Cardio: COMMON NORMALS: regular rate, regular rhythm, S1 normal heart sound present, No gallops present (Cardio), No murmurs present (Cardio) and No rub (Cardio) RATE: regular rate RHYTHM: regular rhythm HEART SOUNDS: S1 normal heart sound present Extremity: OTHER: Edema is mostly resolved from the extremities. Urinary Catheter Management^: Cardenas: Cath Placed During This Visit: yes, but has since been removed by the nurse Reason for Continuing Indwelling Catheter: Decision to DC Catheter Urinary Catheter Date of Insertion: 03/15/21 Urinary Catheter Time of Insertion: 07:00 Date Urinary Catheter Removed: 03/17/21 Time Urinary Catheter Discontinued: 20:00 Data : 03/18/21 04:52 03/18/21 04:52 A&P Assessment and plan (1) Status post aorto-coronary artery bypass graft: Stop day #3. Plan: Patient will ambulate this morning. I will assess chest tube output over the next 4 hours to determine whether chest tube may be removed around noon today or later this afternoon. We may then transition to intermediate care. Blood pressures been under good control with initiation of enalapril in addition to his metoprolol. Remains afebrile though still with mild leukocytosis. Status: Acute Attestations Medical Necessity Statement*: Postop day #3 status post CABG x3 Time Spent in Patient Care: less than 15 minutes Procedures Arterial Line Size (Gauge): 20 Coding Level of Care Code Acute Wastewater Operator for Kikog Fwd Diagnoses Status post aorto-coronary artery bypass graft Z95.1
--- NOTE | 2021-03-18 10:44 | PC.SOCIAL ---
IMM Update Pg. 2 of IMM updated. Patient resting in chair with eyes closed in ICU, so did not awaken to explain again. Copy left at bedside.
[2021-03-18 11:27] LABS: Glucose Point of Care 127 mg/dL (70-110)
--- NOTE | 2021-03-18 12:21 | PC.NURSE ---
Attempt to call to perform family rounding and give update. No answer.
[2021-03-18 17:19] LABS: Glucose Point of Care 130 mg/dL (70-110)
--- NOTE | 2021-03-18 17:22 | PM.MISC ---
Miscellaneous Note Purpose of Documentation: Chest tubes and pacing wires have been discontinued this evening. Chest tube output to the day total approximately 100 cc. He is doing very well. I will leave the wound VAC dressing on place for 1 more day. Will transition to intermediate care tomorrow, though given his blindness, it may be best to maintain location in the ICU if possible under lower nursing acuity level. I will repeat chest x-ray in a.m. along with lab.
[2021-03-18] MEDS: piperacillin-tazobactam 3.375 GM in sodium chloride 0.9% (plus) 50 ML IV (19:44)
[2021-03-18] MEDS: vancomycin 1,000 MG in sodium chloride 0.9% 250 ML 250 MG IV (19:44)
--- NOTE | 2021-03-18 20:19 | PC.NURSE ---
Lab reported negative gram stain associated with possible contaminated platelets
[2021-03-18] MEDS: atorvastatin 40 mg Tablet PO (20:34)
[2021-03-19] VITALS (25 sets, daily range): BP systolic 109–167; BP diastolic 59–99; PULSE 79–100; RESP 14–26; TEMP 36.5–37.2; O2SAT 93–98
[2021-03-19] MEDS: vancomycin 1,250 MG/250 ML PIGGYBACK 250 MG IV ×3 (02:08→18:38)
[2021-03-19] MEDS: piperacillin-tazobactam 3.375 GM in sodium chloride 0.9% (plus) 50 ML IV ×3 (04:18→18:38)
--- NOTE | 2021-03-19 05:07 | PC.NURSE ---
Patient had uneventful shift. Patient vital signs remained stable, with no need for any PRN BP medications. Pain controlled with PO oxycodone. Patient rested through most of shift. Incision sites CDI with no drainage or bleeding noted. Good urine output, and oral intake. No complaints of n/v/d. Will continue to monitor.
[2021-03-19 05:16] LABS: Basophils # 0.1 10^3/uL (0.0-0.1); Basophils % 0.7 %; Eosinophils # 0.5 10^3/uL (0.0-0.8); Eosinophils % 4.8 %; Hematocrit 31.8 % (42.0-52.0); Hemoglobin 10.2 g/dL (11.7-16.6); Lymphocytes # 1.9 10^3/uL (0.8-4.8); Lymphocytes % 17.3 %; Mean Corpuscular HGB Conc 32.1 g/dL (30.0-36.0); Mean Corpuscular Hemoglobin 29.2 pg (28.0-34.0); Mean Corpuscular Volume 91.1 fl (80-94); Mean Platelet Volume 10.6 fL (7.4-10.4); Monocytes # 0.8 10^3/uL (0.2-0.9); Monocytes % 6.9 %; Neutrophils # 7.66 10^3/uL (1.8-7.7); Neutrophils % 69.7 %; Nucleated Red Blood Cells % 0 %; Platelet Count 229 10^3/cmm (130-400); Red Blood Count 3.49 10^6/uL (4.1-5.3)
[2021-03-19 05:41] LABS: Anion Gap 14.9 (5-19); Blood Urea Nitrogen 11 mg/dL (8-23); Calcium 8.6 mg/dL (8.5-10.5); Carbon Dioxide 20 mmol/L (22-29); Chloride 106 mmol/L (98-107); Glucose 98 mg/dL (65-115); Osmolality Calculated 283 mOsm/kg (285-295); Potassium 3.9 mmol/L (3.5-5.1); Sodium 137 mmol/L (136-145)
--- NOTE | 2021-03-19 06:00 | XR_ITS ---
WS: [id number] XR chest 1V portable [id number] REASON FOR EXAM: POD #4 status post CABG/drains removed. FINDINGS: Compared to the examination of the previous day the substernal and left chest tubes have been removed . Left lung remains fully inflated. Areas of atelectasis in the lung bases, most notably on the left. No new abnormality identified. XR/XR chest 1V portable [id number] IMPRESSION: Removal of substernal and left chest tube. Chest relatively stable with some ar eas of atelectasis in the lung bases.
[2021-03-19] MEDS: oxyCODONE-APAP 5-325 mg Tablet PO ×2 (06:42→16:51)
--- NOTE | 2021-03-19 07:38 | P.PN_ITS ---
Subjective Subjective: Interval history: Postop day #4 status post CABG x3. Mr. Townsend stated he had trouble sleeping last night, apparently, the bed mattress lost air support. Otherwise, he has no complaints. He states he is passing flatus though no bowel movement. Wound VAC dressing was removed today. Sternotomy incision is clean, dry, and intact. Drain sites well approximated. Incision was made with Betadine and redressed. Sternum is stable to palpation. Laboratory data is stable. There was report of a positive culture from one of his platelet transfusions. Blood culture was drawn yesterday after receiving this information. I have empirically placed him on vancomycin and Zosyn pending culture results. I do note his white count is down to 11,000. He has had no fever since surgery. He is pulling 1500 cc on incentive spirometry. Chest x-ray remains clear with stable cardiac silhouette. Blood pressures been under good control with the use of metoprolol and enalapril. Vitals/I&O/Wt Last Vital Signs Temp 98.5 F 03/19/21 02:00 Pulse 83 03/19/21 06:00 Resp 20 H 03/19/21 06:42 BP 111/60 03/19/21 02:00 Pulse Ox 93 03/19/21 02:00 03/18/21 03/19/21 03/19/21 22:59 06:59 14:59 Intake Total 250 / 670 650 / 1320 Output Total 1350 / 2150 1250 / 3400 Balance -1100 / -1480 -600 / -2080 Weight last 48 hrs Weight 198 lb Weight 199 lb Physical Exam Chest: COMMONS NORMALS: normal inspection of the chest and normal palpation of entire chest wall OTHER: Tenotomy incisional intact. Sternum stable to palpation. Wound VAC dressing removed. New surgical dressing applied. Resp: COMMON NORMALS: normal respiratory effort, No retractions, No use of accessory muscles, clear to auscultation bilaterally and percussion normal EFFORT & INSPECTION: Yes able to speak in complete sentences and Yes symmetric chest movement AUSCULTATION: clear to auscultation bilaterally PERCUSSION: percussion normal Cardio: COMMON NORMALS: regular rate, regular rhythm, S1 normal heart sound present, No murmurs present (Cardio) and No rub (Cardio) RATE: regular rate RHYTHM: regular rhythm HEART SOUNDS: S1 normal heart sound present Extremity: COMMON NORMALS: no clubbing, cyanosis or edema Urinary Catheter Management^: Cardenas: Cath Placed During This Visit: yes, but has since been removed by the nurse Reason for Continuing Indwelling Catheter: Decision to DC Catheter Urinary Catheter Date of Insertion: 03/15/21 Urinary Catheter Time of Insertion: 07:00 Date Urinary Catheter Removed: 03/17/21 Time Urinary Catheter Discontinued: 20:00 Data : 03/19/21 04:54 03/19/21 04:54 Micro: Microbiology 03/18/21 18:42 Blood Culture - Preliminary Blood SPECIMEN COLLECTED 03/18/21 18:42 Blood Culture - Preliminary Blood SPECIMEN COLLECTED A&P Assessment and plan (1) Status post aorto-coronary artery bypass graft: Postop day #4 status post CABG x3. Plan: Transfer to intermediate care. Continue postop physical therapy, respiratory therapy, Occupational Therapy, and increased activities. We will confirm that home health arrangements have been made, totally consider discharge tomorrow or Monday. Will initiate chlorhexidine shower tomorrow morning. Status: Acute Attestations Medical Necessity Statement*: Postop day #4 status post CABG x3. Procedures Arterial Line Size (Gauge): 20 Coding Level of Care Code Acute Occupational Psychologist for Chg Fwd Diagnoses Status post aorto-coronary artery bypass graft Z95.1
[2021-03-19 08:10] LABS: Glucose Point of Care 111 mg/dL (70-110)
[2021-03-19] MEDS: metoprolol tartrate 25 mg Tablet PO ×2 (09:39→20:57)
[2021-03-19] MEDS: aspirin 81 mg Chew Tablet PO (09:39)
[2021-03-19] MEDS: clopidogrel 75 mg Tablet PO (09:39)
[2021-03-19 10:44] LABS: Blood Gas Sample Site ART LINE
--- NOTE | 2021-03-19 10:52 | PC.CHAP ---
Pastoral Care Encounter/Spiritual Assessment Type of Contact [] Declined fast food attendant visit [] Patient/Family/Request visit [] Outpatient visit [] Follow-up visit [] Physician referral [] Code/Alert [x] Routine visit [] Staff referral [] Actively dying [] Patient sleeping [] Family support [] [] Out of room [] Palliative care [] [] Receiving care in room [] Pre-surgical visit [] Trauma [] Long length of stay [x] ICU visit [] Other: Relational/Emotional Strength [] Patient feels connected with others/family/visitors/staff [] Distress [] Loneliness/isolation [] Abandonment Spirituality of Patient [x] Person of Jaleesa [] Attends Latter-Day of their Jaleesa [x] Believes in Prayer [] Reads Bible or Nondenominational materials [] There are Spiritual issues to be addressed Perinatal Tech Interventions [x] Prayer [x] Active listening [x] Non-anxious presence [x] Spiritual/emotional support [] Crisis/trauma care [] Spiritual counseling [] Bereavement support [] Provided bereavement packet [] Provided Bible/devotional materials [] Provided toy/stuffed animal, coloring book to patient or family member [] Provided Communion [] Anointing/[place] [] Salvation [x] Completed spiritual assessment [] Other: Impact on Illness or Injury [] Angry [] Fearful [] Anxious [] Often cries [] Exhaustion [] Unable to work [] Unable to attend oriental orthodox [] Unable to walk/stand [] Unable to read [] Unable to drive [] Unable to eat/drink [] Unable to sleep [] Unable to be with family [] Patient intubated [] Other: Summary patient enjoyed breakfast.. feeling stronger everyday.. using his pillow less and less... so thankful for all the care he has received Time spent with patient 10 min
[2021-03-19 11:39] LABS: Glucose Point of Care 119 mg/dL (70-110)
--- NOTE | 2021-03-19 15:14 | PC.RESP ---
SMOKING CESSATION INFORMATION SENT TO PATIENT.
[2021-03-19] MEDS: docusate sodium 100 mg Capsule PO (16:51)
[2021-03-19 17:15] LABS: Glucose Point of Care 109 mg/dL (70-110)
[2021-03-19 18:06] LABS: Vancomycin Trough 16.2 ug/mL (10-15)
[2021-03-19] MEDS: atorvastatin 40 mg Tablet PO (20:57)
[2021-03-20] VITALS (11 sets, daily range): BP systolic 117–169; BP diastolic 64–85; PULSE 76–107; RESP 22–29; O2SAT 93–97
[2021-03-20] MEDS: vancomycin 1,250 MG/250 ML PIGGYBACK 250 MG IV ×2 (02:06→09:28)
[2021-03-20] MEDS: piperacillin-tazobactam 3.375 GM in sodium chloride 0.9% (plus) 50 ML IV (04:14)
--- NOTE | 2021-03-20 06:34 | PC.NURSE ---
Patient did not sleep well throughout the night with multiple productive coughing episodes. Denies pain and no pain medications given during shift. Vital signs remain stable. Patient did not require any BP medication. Patient up to BSC with small bowel movement noted. Will continue to monitor.
[2021-03-20 07:29] LABS: Glucose Point of Care 112 mg/dL (70-110)
[2021-03-20] MEDS: amlodipine 5 mg Tablet PO (09:24)
[2021-03-20] MEDS: clopidogrel 75 mg Tablet PO (09:24)
[2021-03-20] MEDS: metoprolol tartrate 25 mg Tablet PO (09:25)
[2021-03-20] MEDS: aspirin 81 mg Chew Tablet PO (09:25)
--- NOTE | 2021-03-20 09:26 | PC.SOCIAL ---
IMM Updated Page 2 of IMM updated. Initialed, timed and dated and copy placed in pts chart.
--- NOTE | 2021-03-20 09:47 | PM.PN ---
Subjective Subjective: Interval history: POD#5 s/p cabg x3. C/O intermittent cough. Afebrile. Vital signs stable. This might be a result of the recently initiated lisinopril. I will discontinue this and initiate amlodipine daily. I had a good bowel movement yesterday evening. States he feels quite good this morning. He is eager for discharge. Home health arrangements have been completed. Vitals/I&O/Wt Last Vital Signs Temp 97.7 F 03/19/21 13:35 Pulse 90 03/20/21 06:00 Resp 19 H 03/19/21 17:00 BP 151/82 03/19/21 17:00 Pulse Ox 94 03/19/21 17:00 03/19/21 03/20/21 03/20/21 22:59 06:59 14:59 Intake Total 1670 / 2380 500 / 2880 Output Total 1850 / 2950 450 / 3400 Balance -180 / -570 50 / -520 Weight last 48 hrs Weight 198 lb Weight 198 lb Physical Exam Chest: COMMONS NORMALS: normal inspection of the chest Resp: COMMON NORMALS: normal respiratory effort, clear to auscultation bilaterally and percussion normal AUSCULTATION: clear to auscultation bilaterally PERCUSSION: percussion normal OTHER: Pulling 1500 cc on incentive spirometer. Cardio: COMMON NORMALS: regular rate, regular rhythm, S1 normal heart sound present and No murmurs present (Cardio) RATE: regular rate RHYTHM: regular rhythm HEART SOUNDS: S1 normal heart sound present Extremity: COMMON NORMALS: no clubbing, cyanosis or edema Urinary Catheter Management^: Cardenas: Cath Placed During This Visit: yes, but has since been removed by the nurse Reason for Continuing Indwelling Catheter: Decision to DC Catheter Urinary Catheter Date of Insertion: 03/15/21 Urinary Catheter Time of Insertion: 07:00 Date Urinary Catheter Removed: 03/17/21 Time Urinary Catheter Discontinued: 20:00 Data : 03/19/21 04:54 03/19/21 04:54 Micro: Microbiology 03/18/21 18:42 Blood Culture - Preliminary Blood NEGATIVE TO DATE 03/18/21 18:42 Blood Culture - Preliminary Blood NEGATIVE TO DATE A&P Assessment and plan (1) Status post aorto-coronary artery bypass graft: OD #5 status post CABG x3. Plan: We will discharge to home with home health services today with scheduled follow-up in my clinic next week. Status: Acute Attestations Medical Necessity Statement*: POD #5 status post CABG Time Spent in Patient Care: 16 - 35 minutes Procedures Arterial Line Size (Gauge): 20 Coding Level of Care Code Acute Fiberglass Machine Operator for Kikog Fwd Diagnoses Status post aorto-coronary artery bypass graft Z95.1
--- NOTE | 2021-03-20 10:03 | P.DS_ITS ---
Discharge Providers Date of Admission: 03/15/21 13:50 Date of Discharge: March 20, 2021 Attending Provider at Admission: Epifanio Peguero MD Attending Provider at Discharge: Epifanio Peguero MD Diagnoses at Discharge Discharge Diagnosis (1) Status post aorto-coronary artery bypass graft: Status: Acute Reason for Visit Reason for Visit: Brief History: Left main coronary artery stenosis Hospital Course Hospital Course Mr. Townsend is a 60-year-old gentleman who originally presented to [facility] back in January with an inferior STEMI. He underwent successful PTCA rescue by Dr. Charles of an occluded RCA. During a catheterization he was found to have left main coronary artery stenosis as well as high-grade proximal lesions of the LAD and circumflex vessels. After initial convalescence from his PTCA, he was electively admitted on March 15 and underwent three-vessel coronary bypass grafting utilizing internal mammary artery and 2 veins. Postoperatively, he convalesced in the ICU where he remained hemodynamically stable. No arrhythmias. Mediastinal and pleural drains were removed after the third postop day. Blood bank reported that 1 unit of platelets, which were transfused, did have a positive culture. These results are still pending. Therefore, I elected to empirically place him on vancomycin and Zosyn. Blood cultures were drawn prior to initiation of antibiotics other than his routine postop Zinacef. Blood cultures remain negative to date. He has remained afebrile. Postop leukocytosis was maximum on immediate postop laboratory data at 14.2. Most recent white cell count was 11.0 on postop day #4, yesterday. He is remained afebrile throughout his postop course. Incisions are clean and dry. Sternum is stable. Breath sounds are clear. Incentive spirometry is 1500 cc. He did develop a dry cough yesterday afternoon without production. This may be related to the initiation of lisinopril to assist with blood pressure control. Therefore, I am going to discontinue lisinopril and initiate amlodipine 5 mg p.o. daily. Tolerating diet well. Bowel function has returned. Voiding without difficulty. Home health arrangements have been completed through [facility] health services. He will be discharged to home today. At discharge, he is in stable condition. Physical Exam Chest: COMMONS NORMALS: normal inspection of the chest and normal palpation of entire chest wall OTHER: Incisions are clean, dry, and intact. Resp: COMMON NORMALS: normal respiratory effort, No use of accessory muscles and clear to auscultation bilaterally AUSCULTATION: clear to auscultation bilaterally OTHER: Pulling 1500 cc on incentive spirometry. Cardio: COMMON NORMALS: regular rate, regular rhythm, S1 normal heart sound present and No murmurs present (Cardio) RATE: regular rate RHYTHM: regular rhythm HEART SOUNDS: S1 normal heart sound present GI: COMMON NORMALS: Normal to inspection, nondistended, normoactive bowel sounds present and Soft to palpation PALPATION: Yes Soft to palpation Extremity: COMMON NORMALS: no clubbing, cyanosis or edema Urinary Catheter Management^: Cardenas: Cath Placed During This Visit: yes, but has since been removed by the nurse Reason for Continuing Indwelling Catheter: Decision to DC Catheter Urinary Catheter Date of Insertion: 03/15/21 Urinary Catheter Time of Insertion: 07:00 Date Urinary Catheter Removed: 03/17/21 Time Urinary Catheter Discontinued: 20:00 Discharge Data Data Completed and Pending: Completed Studies During Hospitalization Category Date Time Status XR chest 1V jame ble [id number] Routine Exams 03/15/21 08:32 Completed XR chest 1V jame ble [id number] Routine Exams 03/16/21 06:00 Completed XR chest 1V jame ble [id number] Routine Exams 03/17/21 06:00 Completed XR chest 1V jame ble [id number] Routine Exams 03/18/21 06:00 Completed XR chest 1V jame ble [id number] Routine Exams 03/19/21 06:00 Completed XR chest 1V jame ble [id number] Stat Exams 03/15/21 21:31 Completed Pending at discharge Category Date Time Status ABG FULL [Arteria l Blood Gas Full] Routine Lab 03/15/21 12:15 Ordered Arterial Blood Ga s W/O Coox Stat Lab 03/15/21 13:01 Ordered Blood Culture Sta t Lab 03/18/21 18:42 Results Labs from last 24 hours 03/20/21 03/19/21 03/19/21 06:53 17:19 17:12 Sample Site POC Glucose 112 H 109 Vancomycin Trough 16.2 H 03/19/21 03/16/21 11:36 03:20 Sample Site Art line POC Glucose 119 H Vancomycin Trough Vitals: Last Vital Signs Temp 97.7 F 03/19/21 13:35 Pulse 90 10/09/21 06:00 Resp 19 H 03/19/21 17:00 BP 151/82 03/19/21 17:00 Pulse Ox 94 03/19/21 17:00 Discharge Plan Discharge Patient Disposition: Home Health Service Condition: Stable Prescriptions: New oxycodone-acetaminophen 5-325 mg Tablet 1 tab PO Q6H PRN (Reason: Moderate To Severe Pain) Qty: 28 RF: 0 amlodipine 5 mg tablet 5 mg PO DAILY Qty: 30 RF: 4 metoprolol tartrate 25 mg Tablet 25 mg PO BID@0900,2100 Qty: 60 RF: 4 levofloxacin 500 mg tablet 500 mg PO DAILY 7 Days Qty: 7 RF: 0 Continued aspirin 81 mg Tablet,Delayed Release (Dr/Ec) 81 mg PO DAILY Qty: 90 RF: 3 atorvastatin 40 mg Tablet 40 mg PO BEDTIME Qty: 90 RF: 3 clopidogrel 75 mg Tablet 75 mg PO DAILY Qty: 90 RF: 3 nitroglycerin 0.4 mg Tablet, Sublingual 0.4 mg sublingual Q5M PRN (Reason: Chest Pain) Qty: 60 RF: 0 Discontinued metoprolol succinate 25 mg tablet extended release 24 hr 12.5 mg PO BEDTIME RF: 0 lisinopril 20 mg Tablet 20 mg PO DAILY Qty: 90 RF: 3 Discharge Orders: Discharge Order (Routine); Ordered 03/20/21 Ordered By: Epifanio Peguero Referrals: [facility] [Outside] ([facility] has accepted you and will be contacting you about a time to admit you to their services. If you have any questions please call them at [phone].) Epifanio Peguero MD [Physician] - 1 week Discharge Diet: Usual diet Discharge Activity: Limit activity as instructed Patient Instructions: Opioid Safety Activity Restrictions/Additional Instructions: No lifting, pulling, pushing with arms greater than 5 pounds for the next 6 weeks May shower daily with dressings off. Dry incisions completely after showering, paint with Betadine, and recover. Confirm adhesive edge of bandage is not over incision or drain sites. No swimming or tub baths x1 month Report any fever, redness, swelling, increased pain or drainage from incisions. Please call [facility] office Monday morning after 8 AM to confirm follow-up appointment next week. [phone] Discharge Attestations Time Spent in Discharge Care*: less than 30 min Specific Discharge Activities: educating patient, discussing with employment case manager/social workers/dc planners, documenting/other paperwork and evaluating patient/reviewing data Time Spent in Smoking Cessation: 3 to 10 minutes Status at Discharge: Cognitive status at discharge: cognitively intact , Behavioral status at discharge: cooperative , Functional status at discharge: other assisted ambulation Overall status at discharge: patient is progressing back to baseline Quality Metrics Clinical Quality Measures During this hospital stay, did patient experience: None Coding Level of Care Code Acute Chg FW DC note Diagnoses Status post aorto-coronary artery bypass graft Z95.1
[2021-03-20] MEDS: chlorhexidine gluconate 4% Btl 118 mL 1 APPLIC TOPICAL (11:36)
--- NOTE | 2021-03-20 14:36 | PC.NURSE ---
At approximately 0824 Dr. Peguero instructed via telephone orders to discontinue 5 mg PO enalapril and start amlodipine 5mg PO daily to address patients cough. Also, orders for chlorhexidine gluconate to be used once daily beginning with pre discharge shower. At approximately 1100 shower and dressing changed per Dr. Corrales orders. Patient and his received discharge instructions and dressing change instructions with supplies at 1400.
--- NOTE | 2021-03-24 10:13 | PC.SOCIAL ---
discharge follow up call made, spoke with patient. he reports he is feeling great. patient reports his wound is free from redness and swelling, he is cleaning and applying betadine daily. patient is aware to not soak for 1 month. discussed 5lb lifting restriction with patient. he verbalizes understanding. patient is unsure of medications but race and sports book writer will call and speak with this afternoon to make sure patient is taking as directed. patient denies questions or concerns.
--- NOTE | 2021-03-24 15:41 | PC.SOCIAL ---
spoke with patients regarding patients medications. patient is taking as prescribed. also discussed follow up appointment date and time with Dr. Peguero with . she denies any questions or concerns.
== END 2021-03-20 14:00 | disposition home health service (06) | DRG 236 ==
LOC: ICU 13:50
PROVIDERS: Admitting Provider Thoracic Surgery (Cardiothoracic Vascular Surgery); Visit Provider Thoracic Surgery (Cardiothoracic Vascular Surgery)
PROC: 02100Z9 Bypass Coronary Artery, One Artery from Left Internal Mammary, Open Approach (ICD-10-PCS; principal; 2021-03-15 07:00)
DX: I25.10 Atherosclerotic heart disease of native coronary artery without angina pectoris (principal); Z95.5 Presence of coronary angioplasty implant and graft; I25.2 Old myocardial infarction; Q15.0 Congenital glaucoma; M19.90 Unspecified osteoarthritis, unspecified site; I10 Essential (primary) hypertension; I73.9 Peripheral vascular disease, unspecified; F17.210 Nicotine dependence, cigarettes, uncomplicated; Z98.890 Other specified postprocedural states; F10.10 Alcohol abuse, uncomplicated; Z79.82 Long term (current) use of aspirin; Z79.02 Long term (current) use of antithrombotics/antiplatelets
CPT/HCPCS: 36415; 36416; 36430; 71045; 80048; 80051; 80076; 80202; 81003; 82330; 82805; 82962; 83735; 84439; 84443; 85025; 85347; 85610; 85730; 86850; 86900; 86920; 86927; 87040; 93005; 94002; 94640; 94799; 97116; 97163; 97167; 97530; A4570; C9113; J0171; J0697; J1100; J1170; J1200; J1250; J1644; J1815; J2001; J2060; J2150; J2250; J2270; J2370; J2405; J2440; J2543; J2704; J2720; J3010; J3370; J3475; J3480; J3490; J7030; J7040; J7050; P9016; P9017; P9035; P9041; P9047

== ENCOUNTER → 2021-09-02 13:15 | Outpatient (BNVA) | payer MEDICARE, MEDICAID, SELFPAY | PROVIDERS: Visit Provider Internal Medicine | DX: Z09 Encounter for follow-up examination after completed treatment for conditions other than malignant neoplasm (principal); I25.10 Atherosclerotic heart disease of native coronary artery without angina pectoris; I73.9 Peripheral vascular disease, unspecified | CPT/HCPCS: 99214 ==

== ENCOUNTER → 2022-03-03 13:31 | Outpatient (BNVA) | payer MEDICARE, MEDICAID, SELFPAY | PROVIDERS: Visit Provider Internal Medicine | DX: I25.10 Atherosclerotic heart disease of native coronary artery without angina pectoris (principal); I10 Essential (primary) hypertension; M19.90 Unspecified osteoarthritis, unspecified site; I73.9 Peripheral vascular disease, unspecified; F17.210 Nicotine dependence, cigarettes, uncomplicated | CPT/HCPCS: 99214 ==